=== PATIENT | male | born 1955 | race Caucasian/White ===

== ENCOUNTER 2016-12-28 09:33 | Emergency (ER) | payer BC ==
[2016-12-28] MEDS ORDERED: TETRACAINE HCL 0.5% OPH SOLN 2 ML OD ONE (10:12)
[2016-12-28] MEDS ORDERED: HYDROCODONE/ACETAMINOPHEN 5-325 MG TABLET PO ONE (10:29)
--- NOTE | 2016-12-28 10:30 | ER Document Report ---
ED Eye Complaint - General Mode of Arrival: Ambulatory Information source: Patient TRAVEL OUTSIDE OF THE [place] IN LAST 30 DAYS: No - HPI Patient complains to provider of: Left Eye pain and bruising Onset: This morning Associated symptoms: Other - see above - General Chief Complaint: Eye Injury Stated Complaint: LEFT EYE INJURY Notes: 61 year old male with history of aspirin use presents to the ED complaining of left eye pain and bruising that started this morning when his dog jumped up and hit heads with the patient. Patient states that he was hit above the left eye and denies being scratched or bitten. Patient states that the immediate area around his eye is throbbing. Patient's primary care provider is Dr. Aguilar. ( RICARDO AGUILAR) - Related Data Allergies/Adverse Reactions: No Known Allergies Allergy (Verified 12/28/16 09:47) Past Medical History - General Information source: Patient - Social History Smoking Status: Never Smoker Chew tobacco use (# tins/day): No Frequency of alcohol use: None Drug Abuse: None Family History: Reviewed & Not Pertinent Patient has suicidal ideation: No Patient has homicidal ideation: No - Past Medical History Cardiac Medical History: Reports: Hx Hypercholesterolemia, Hx Hypertension Endocrine Medical History: Reports: Hx Diabetes Mellitus Type 2, Hx Hypothyroidism Musculoskeltal Medical History: Reports Hx Arthritis Traumatic Medical History: Reports: Hx Fractures - fx right femur 1972 Past Surgical History: Reports: Hx Appendectomy - Immunizations Hx Diphtheria, Pertussis, Tetanus Vaccination: Yes Review of Systems - Review of Systems Constitutional: No symptoms reported EENT: See HPI, Eye pain - left eye, Other - left eye bruising Cardiovascular: No symptoms reported Respiratory: No symptoms reported Gastrointestinal: No symptoms reported Genitourinary: No symptoms reported Male Genitourinary: No symptoms reported Musculoskeletal: No symptoms reported Skin: No symptoms reported Hematologic/Lymphatic: No symptoms reported Neurological/Psychological: No symptoms reported -: Yes All other systems reviewed and negative Physical Exam - Vital signs Interpretation: Normal - General General appearance: Alert In distress: None - HEENT Head: No: Normocephalic, Atraumatic Eyes: Other - ecchymosis to the left upper eye with no laceration. No: Normal Cornea: Normal - no foreign body or abrasion secondary to the stain Extraocular movements intact: Yes Eyelashes: Normal Pupils: PERRL - Respiratory Respiratory status: No respiratory distress Breath sounds: Normal - Cardiovascular Rhythm: Regular Heart sounds: Normal auscultation - Abdominal Inspection: Normal - Back Back: Normal, Nontender - Extremities General upper extremity: Normal inspection, Normal ROM General lower extremity: Normal inspection, Normal ROM - Neurological Neuro grossly intact: Yes Cognition: Normal Orientation: AAOx4 [place] Coma Scale Eye Opening: Spontaneous Teri Coma Scale Verbal: Oriented Teri Coma Scale Motor: Obeys Commands [place] Coma Scale Total: 15 Speech: Normal - Psychological Associated symptoms: Normal affect, Normal mood - Skin Skin Temperature: Warm Skin Moisture: Dry Skin Color: Normal - Vital signs Vitals: Temp Pulse Resp BP Pulse Ox 97.9 F 64 16 108/66 95 12/28/16 09:40 12/28/16 09:40 12/28/16 09:40 12/28/16 09:40 12/28/16 09:40 (RICARDO AGUILAR) (EDITH JC) Course - Re-evaluation Re-evalutation: 12/28/16 11:50 I personally performed the services described in the documentation, reviewed and edited the documentation which was dictated to my scribe in my presence, and it accurately records my words and actions. Patient states he bent over and his small dog jumped up and hit him in the face. He has ecchymosis to the left eyelid which is swollen. He has no for head nasal or other face pain. No epistaxis. Complains of pain right over the eyelid where it is bruised and swollen. Stained his eye there is no corneal abrasion or foreign body I struck her muscles intact. Orbital x-ray shows no fracture but possible fracture at the tip of the nose patient didn't have any pain at the tip of the nose noted he complain of pain in that area. I did give him a [place] while he was here he says it didn't make the pain completely goes away I explained to him that he has a bruise and a contusion and it will make the pain completely go away and is going to have pain with this for several days until the swelling and contusion goes down. I'm giving him [place] that he can take at home for that in addition to ice and follow-up with ear nose and throat doctor. He is also follow-up with primary care physician to 3 days return for increasing worsening or new symptoms (EDITH JC) - Vital Signs Vital signs: Temp Pulse Resp BP Pulse Ox 97.9 F 64 16 108/66 95 12/28/16 09:40 12/28/16 09:40 12/28/16 09:40 12/28/16 09:40 12/28/16 09:40 (RICARDO AGUILAR) (EDITH JC) Discharge - Discharge Clinical Impression: left eyelid contusion, concerns for nasal fracture Condition: Stable Disposition: HOME, SELF-CARE Additional Instructions: Contusion Your injury has resulted in a contusion -- a crushing of the deep tissues. No injury to important structures was detected during the physician's exam. Contusions vary in the amount of pain they cause, and in the length of time required for healing. Typically, the area will become bruised, and will remain painful to touch for two or three weeks. However, most patients are back to working and playing within a few days. After the initial period of rest and cold-packs, your symptoms (together with the doctor's recommendations) will determine how rapidly you can get back to full activity. Usually this means "do what feels okay, but don't do things that hurt." If re-examination was recommended, it's important to follow up as instructed. Call the doctor or return any time if pain increases, if swelling becomes severe, if you develop numbness or weakness in an injured extremity, or if any other alarming symptoms occur. nasal bone fracture Radiologist is concerned there may be a broken bone at the tip of your nose. I am also have a follow-up with the ear nose and throat doctor regarding this. Prescriptions: Hydrocodone/Acetaminophen [[place] 5-325 mg Tablet] 1 tab PO QID #15 tablet Referrals: [facility] [Provider Group] - Follow up as needed (Call today for an appointment to be seen in follow-up in 3-5 days return for increasing worsening or new symptoms) RAJESH AGUILAR MD [Primary Care Provider] - Follow up as needed (In 2-3 days) Scribe Documentation - Scribe Written by Marialuisae:: John Wilder, 12/28/2016 11:05 acting as scribe for :: Preston
[2016-12-28 12:09] VITALS: BP 109/67
== END 2016-12-28 12:08 | disposition home or self-care (01) ==
LOC: ER 09:33
DX: S00.12XA Contusion of left eyelid and periocular area, initial encounter (principal); W54.1XXA Struck by dog, initial encounter; H57.12 Ocular pain, left eye; I10 Essential (primary) hypertension; E11.9 Type 2 diabetes mellitus without complications
CPT/HCPCS: 70480; 99283

== ENCOUNTER 2017-01-10 04:38 | Emergency (ER) | payer BC ==
[2017-01-10] MEDS ORDERED: DIAZEPAM 5 MG TABLET PO ONE (06:06)
[2017-01-10] MEDS ORDERED: KETOROLAC TROMETHAMINE 60 MG/2 ML SDV IM ONE (06:06)
--- NOTE | 2017-01-10 07:20 | ER Document Report ---
ED General - General Chief Complaint: Headache Stated Complaint: HEAD PAIN, NECK PAIN Mode of Arrival: Ambulatory Information source: Patient Notes: 61-year-old male presents with complaints of right earache that started for 5 days ago and is now causing him to have a headache. Patient denies any neurological deficits denies any weakness numbness loss about or bladder function. Patient is a diabetic denies any bony tenderness around his ear TRAVEL OUTSIDE OF THE [place] IN LAST 30 DAYS: No - HPI Onset: Last week Onset/Duration: Persistent Quality of pain: Achy Severity: Mild Pain Level: 1 Associated symptoms: Earache, Headache Exacerbated by: Denies Relieved by: Denies Similar symptoms previously: No Recently seen / treated by doctor: No - Related Data Allergies/Adverse Reactions: No Known Allergies Allergy (Verified 12/28/16 09:47) Past Medical History - Social History Smoking Status: Never Smoker Cigarette use (# per day): No Chew tobacco use (# tins/day): No Smoking Education Provided: No Frequency of alcohol use: None Drug Abuse: None Family History: Reviewed & Not Pertinent Patient has suicidal ideation: No Patient has homicidal ideation: No - Past Medical History Cardiac Medical History: Reports: Hx Hypercholesterolemia, Hx Hypertension Denies: Hx Atrial Fibrillation, Hx Congestive Heart Failure, Hx Coronary Artery Disease, Hx Heart Attack, Hx Peripheral Vascular Disease, Hx Heart Murmur Pulmonary Medical History: Denies: Hx Tuberculosis Neurological Medical History: Denies: Hx Seizures Endocrine Medical History: Reports: Hx Diabetes Mellitus Type 2, Hx Hypothyroidism. Denies: Hx Graves' Disease, Hx Hyperthyroidism Renal/ Medical History: Denies: Hx Peritoneal Dialysis Musculoskeltal Medical History: Reports Hx Arthritis Traumatic Medical History: Reports: Hx Fractures - fx right femur 1972 Past Surgical History: Reports: Hx Appendectomy. Denies: Hx Pacemaker - Immunizations Hx Diphtheria, Pertussis, Tetanus Vaccination: Yes Review of Systems - Review of Systems Notes: REVIEW OF SYSTEMS: CONSTITUTIONAL : Denies fever, chills, or sweats. Denies recent illness. EENT: Admits to right earache CARDIOVASCULAR: Denies chest pain. Denies palpitations or racing or irregular heart beat. Denies ankle edema. RESPIRATORY: Denies cough, cold, or chest congestion. Denies shortness of breath, difficulty breathing, or wheezing. GASTROINTESTINAL: Denies abdominal pain or distention. Denies nausea, vomiting , or diarrhea. Denies blood in vomitus, stools, or per rectum. Denies black, tarry stools. Denies constipation. GENITOURINARY: Denies difficulty urinating, painful urination, burning, frequency, blood in urine, or discharge. MUSCULOSKELETAL: Denies back or neck pain or stiffness. Denies joint pain or swelling. SKIN: Denies rash, lesions or sores. HEMATOLOGIC : Denies easy bruising or bleeding. LYMPHATIC: Denies swollen, enlarged glands. NEUROLOGICAL: Admits to headache with no neurological deficits PSYCHIATRIC: Denies anxiety or stress. Denies depression, suicidal ideation, or homicidal ideation. ALL OTHER SYSTEMS REVIEWED AND NEGATIVE. Dictation was performed using [employer] voice recognition software PHYSICAL EXAMINATION: GENERAL: Well-appearing, well-nourished and in no acute distress. HEAD: Atraumatic, normocephalic. No mastoid tenderness EYES: Pupils equal round and reactive to light, extraocular movements intact, sclera anicteric, conjunctiva are normal. ENT: Right TM is pustular NECK: Normal range of motion, supple without lymphadenopathy LUNGS: Breath sounds clear to auscultation bilaterally and equal. No wheezes rales or rhonchi. HEART: Regular rate and rhythm without murmurs ABDOMEN: Soft, nontender, nondistended abdomen. No guarding, no rebound. No masses appreciated. Musculoskeletal: Normal range of motion, no pitting or edema. No cyanosis. NEUROLOGICAL: Cranial nerves grossly intact. Normal speech, normal gait. Normal sensory, motor exams PSYCH: Normal mood, normal affect. SKIN: Warm, Dry, normal turgor, no rashes or lesions noted. Physical Exam - Vital signs Vitals: Temp Pulse BP Pulse Ox 98.1 F 90 127/84 H 94 01/10/17 04:43 01/10/17 04:43 01/10/17 04:43 01/10/17 04:43 Course - Re-evaluation Re-evalutation: 01/10/17 07:19 On my evaluation patient is in no distress, he is given pain control per his complaints however looks extremely well Patient otherwise sent emergently for CT head with and without contrast given that he was complaining of throbbing headache. I very low suspicion for any life-threatening issues however given the symptoms I do believe it is appropriate to evaluate the patient further 01/10/17 07:39 CT head with and without contrast noted no acute abnormality, patient has been instructed to hydrate well given that contrast was given. Patient denied any history of kidney issues and was given contrast without lab work in his permission After performing a Medical Screening Examination, I estimate there is LOW risk for ACUTE GLAUCOMA, TEMPORAL ARTERITIS, MENINGITIS, INCRANIAL HEMORRHAGE, or ISCHEMIC STROKE thus I consider the discharge disposition reasonable. The patient and I have discussed the diagnosis and risks, and we agree with discharging home with close follow-up with the understanding that symptoms and presentations can change. We also discussed returning to the Emergency Department immediately if new or worsening symptoms occur. We have discussed the symptoms which are most concerning (e.g., changing or worsening symptoms, new numbness or weakness, vomiting, fever) that necessitate immediate return. - Vital Signs Vital signs: Temp Pulse Resp BP Pulse Ox 98.1 F 82 20 127/84 H 94 01/10/17 04:44 01/10/17 04:44 01/10/17 04:44 01/10/17 04:44 01/10/17 04:44 Discharge - Discharge Clinical Impression: Otitis media Qualifiers: Otitis media type: unspecified Laterality: unspecified laterality Chronicity: acute Qualified Code(s): H66.90 - Otitis media, unspecified, unspecified ear Headache Qualifiers: Headache type: unspecified Headache chronicity pattern: acute headache Intractability: not intractable Qualified Code(s): R51 - Headache Condition: Stable Disposition: HOME, SELF-CARE Instructions: Headache ([facility]) Prescriptions: Amoxicillin Trihydrate [Amoxil 875 mg Tablet] 1 tab PO BID #20 tablet Hydrocodone/Acetaminophen [[place] 5-325 mg Tablet] 1 tab PO Q6 #10 tablet Referrals: RAJESH AGUILAR MD [Primary Care Provider] - Follow up tomorrow
[2017-01-10 07:57] VITALS: BP 108/77
== END 2017-01-10 07:53 | disposition home or self-care (01) ==
LOC: ER 04:38
DX: R51 Headache (principal); H66.90 Otitis media, unspecified, unspecified ear; H92.01 Otalgia, right ear; I10 Essential (primary) hypertension; E11.9 Type 2 diabetes mellitus without complications
CPT/HCPCS: 99284; 96372; 70450; 70460; J1885

== ENCOUNTER → 2017-02-11 | Outpatient (CLI) | payer BC | LOC: OD 10:37 | PROVIDERS: ATTEND Physician Assistant | DX: M25.552 Pain in left hip (principal); M25.562 Pain in left knee ==

== ENCOUNTER 2017-05-06 19:28 | Emergency (ER) | payer BC ==
[2017-05-06] MEDS ORDERED: OXYCODONE-ACETAMINOPHEN 5-325 MG TABLET PO ONE (21:08)
--- NOTE | 2017-05-06 21:12 | ER Document Report ---
HPI - HPI Patient complains to provider of: Pain to left leg Onset: Last week Onset/Duration: Persistent Quality of pain: Achy Pain Level: 5 Context: Pt complains of pain to his left leg behind the knee. Patient denies any injury. Patient denies any recent travel or immobilization. Patient complains of increased pain with ambulation. Associated Symptoms: Other - left leg pain Exacerbated by: Movement, Walking Relieved by: Denies Similar symptoms previously: No Recently seen / treated by doctor: No - ROS ROS below otherwise negative: Yes Systems Reviewed and Negative: Yes All other systems reviewed and negative - CONSTITUTIONAL Constitutional: DENIES: Fever, Chills - NEURO Neurology: DENIES: Weakness - REPRODUCTIVE Reproductive: DENIES: : - MUSCULOSKELETAL Musculoskeletal: REPORTS: Extremity pain - left leg - DERM Skin Color: Normal Skin Problems: None Past Medical History - General Information source: Patient - Social History Smoking Status: Never Smoker Frequency of alcohol use: None Drug Abuse: None 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 Denies: Hx Graves' Disease, Hx Hyperthyroidism Renal/ Medical History: Denies: Hx Peritoneal Dialysis Musculoskeltal Medical History: Reports Hx Arthritis Traumatic Medical History: Reports: Hx Fractures - fx right femur 1972 Past Surgical History: Reports: Hx Appendectomy. Denies: Hx Pacemaker - Immunizations Hx Diphtheria, Pertussis, Tetanus Vaccination: Yes Vertical Provider Document - CONSTITUTIONAL Agree With Documented VS: Yes Exam Limitations: No Limitations General Appearance: WD/WN, No Apparent Distress - INFECTION CONTROL TRAVEL OUTSIDE OF THE [place] IN LAST 30 DAYS: No - HEENT HEENT: Atraumatic, Normocephalic - NECK Neck: Normal Inspection, Supple - RESPIRATORY Respiratory: Breath Sounds Normal, No Respiratory Distress, Chest Non-Tender O2 Sat by Pulse Oximetry: 95 - CARDIOVASCULAR Cardiovascular: Regular Rate, Regular Rhythm, No Murmur Pulses: Normal: Posterior tibial, Dorsalis pedis - BACK Back: Normal Inspection Notes: no tenderness - MUSCULOSKELETAL/EXTREMETIES Musculoskeletal/Extremeties: Tender - left popliteal pain, No Edema. negative: Eccymosis - NEURO Level of Consciousness: Awake, Alert, Appropriate Motor/Sensory: No Motor Deficit, No Sensory Deficit - DERM Integumentary: Warm, Dry, No Rash Course - Vital Signs Vital signs: Temp Pulse Resp BP Pulse Ox 97.7 F 74 18 109/50 L 95 05/06/17 20:00 05/06/17 20:00 05/06/17 20:00 05/06/17 20:00 05/06/17 20:00 - Diagnostic Test Radiology reviewed: Reports reviewed Discharge - Discharge Clinical Impression: Popliteal pain, Muscle strain Condition: Stable Disposition: HOME, SELF-CARE Instructions: Sprained Knee ([facility]), Use of Crutches ([facility]), Muscle Strain ([facility]), Muscle Relaxers ([facility]) Additional Instructions: Return immediately for any new or worsening symptoms Followup with your primary care provider, call tomorrow to make a followup appointment Follow-up with orthopedic doctor for any continued pain or problems Weightbearing as tolerated Prescriptions: Cyclobenzaprine HCl [Flexeril 10 Mg Tablet] 10 mg PO TID #15 tablet Referrals: RAJESH AGUILAR MD [Primary Care Provider] - Follow up as needed [facility] [Provider Group] - Follow up in 3-5 days
--- NOTE | 2017-05-06 22:19 | RADIOLOGY REPORT (SQ) ---
EXAM DESCRIPTION: KNEE LEFT 4 VIEW COMPLETED DATE/TIME: 05/06/2017 9:48 pm REASON FOR STUDY: left popliteal pain COMPARISON: None. NUMBER OF VIEWS: Four views. TECHNIQUE: AP, lateral, and both oblique radiographic images acquired of the left knee. LIMITATIONS: None. FINDINGS: MINERALIZATION: Normal. BONES: No acute fracture or dislocation. No worrisome bone lesions. JOINT: No effusion. SOFT TISSUES: No soft tissue swelling. No radio-opaque foreign body. OTHER: No other significant finding. IMPRESSION: NO RADIOGRAPHIC EVIDENCE OF ACUTE INJURY. TECHNICAL DOCUMENTATION: JOB ID: [id number] [employer]- All Rights Reserved
--- NOTE | 2017-05-06 22:40 | RADIOLOGY REPORT (SQ) ---
EXAM DESCRIPTION: VENOUS UNILATERAL LOWER COMPLETED DATE/TIME: 05/06/2017 10:30 pm REASON FOR STUDY: left popliteal pain COMPARISON: None. TECHNIQUE: Dynamic and static hitchcock scale and color images acquired of the left leg venous system. Se lected spectral images acquired with additional compression and augmentation maneuvers. The contralat eral common femoral vein and saphenofemoral junction were also imaged. Images stored on PACS. LIMITATIONS: None. FINDINGS: COMMON FEMORAL: Normal phasicity, compression and augmentation. No visualized echogenic ma terial on hitchcock scale. No defects on color images. FEMORAL: Normal compression and augmentation. No visualized echogenic material on hitchcock scale. No defe cts on color images. POPLITEAL: Normal compression, augmentation. No visualized echogenic material on hitchcock scale. No defec ts on color images. CALF VESSELS: Normal compression, augmentation. No visualized echogenic material on hitchcock scale. No de fects on color images. GSV and SSV: Normal compression, augmentation. No visualized echogenic material on hitchcock scale. No def ects on color images. ANY DEEP VENOUS INSUFFICIENCY: Not evaluated. ANY EVIDENCE OF POPLITEAL CYST: No. OTHER: No other significant finding. CONTRALATERAL COMMON FEMORAL VEIN AND SAPHENOFEMORAL JUNCTION: Normal phasicity, compression and augmentation. No visualized echogenic material on hitchcock scale. No de fects on color images. IMPRESSION: NO EVIDENCE OF DVT OR SVT IN THE LEFT LEG. TECHNICAL DOCUMENTATION: JOB ID: [id number] [employer]- All Rights Reserved
[2017-05-06] MEDS ORDERED: HYDROCODONE/ACETAMINOPHEN 5-325 MG 6 TAB/DSPK PO PRN (23:29)
[2017-05-07 00:08] VITALS: BP 112/62
== END 2017-05-06 23:50 | disposition home or self-care (01) ==
LOC: ER 19:28
DX: S86.112A Strain of other muscle(s) and tendon(s) of posterior muscle group at lower leg level, left leg, initial encounter (principal); M25.562 Pain in left knee; M79.605 Pain in left leg; X58.XXXA Exposure to other specified factors, initial encounter
CPT/HCPCS: 93971; 99284

== ENCOUNTER 2017-07-09 17:42 | Emergency (ER) | payer BC ==
[2017-07-09] MEDS ORDERED: OXYCODONE-ACETAMINOPHEN 5-325 MG TABLET PO ONE (18:03)
[2017-07-09 18:27] LABS: APPEARANCE,URINE CLEAR; BILIRUBIN,URINE NEGATIVE (NEGATIVE); GLUCOSE, URINE >=500 mg/dL (NEGATIVE); KETONES,URINE NEGATIVE (NEGATIVE); LEUKOCYTE ESTERASE,URINE NEGATIVE (NEGATIVE); NITRITE,URINE NEGATIVE (NEGATIVE); PROTEIN,URINE NEGATIVE (NEGATIVE); URINE SPECIFIC GRAVITY 1.021; UROBILINOGEN,URINE NEGATIVE mg/dL (<2.0)
[2017-07-09] MEDS ORDERED: KETOROLAC TROMETHAMINE 60 MG/2 ML SDV IM ONE (18:41)
--- NOTE | 2017-07-09 18:48 | ER Document Report ---
HPI - HPI Patient complains to provider of: left sided back pain radiating down leg Onset: Other Onset/Duration: Sudden Quality of pain: Throbbing Severity: Severe Pain Level: 5 Context: Patient states he initial her back 3 weeks ago removing a window air conditioning unit. States he felt like he pulled a muscle in his left buttock which got better. morning with left-sided low back pain which is now radiating down the left leg. Denies Loss of control of bowels or bladder, but states he has had some burning with urination for about 1 week. Associated Symptoms: None Exacerbated by: Movement, Walking Relieved by: Denies Similar symptoms previously: Yes Recently seen / treated by doctor: No - ROS ROS below otherwise negative: Yes Systems Reviewed and Negative: Yes All other systems reviewed and negative - CONSTITUTIONAL Constitutional: DENIES: Fever - EENT EENT: DENIES: Congestion - NEURO Neurology: DENIES: Headache - CARDIOVASCULAR Cardiovascular: DENIES: Chest pain - RESPIRATORY Respiratory: DENIES: Trouble Breathing - GASTROINTESTINAL Gastrointestinal: DENIES: Abdominal Pain - URINARY Urinary: REPORTS: Dysuria. DENIES: Urgency, Frequency - REPRODUCTIVE Reproductive: DENIES: : - MUSCULOSKELETAL Musculoskeletal: REPORTS: Back Pain - DERM Skin Color: Normal Past Medical History - General Information source: Patient - Social History Smoking Status: Former Smoker Frequency of alcohol use: None Drug Abuse: None Lives with: Spouse/Significant other Family History: Reviewed & Not Pertinent - Past Medical History Cardiac Medical History: Reports: Hx Atrial Fibrillation, Hx Hypercholesterolemia, Hx Hypertension Endocrine Medical History: Reports: Hx Diabetes Mellitus Type 2, Hx Hypothyroidism Musculoskeltal Medical History: Reports Hx Arthritis Traumatic Medical History: Reports: Hx Fractures - fx right femur 1972 Past Surgical History: Reports: Hx Appendectomy - Immunizations Hx Diphtheria, Pertussis, Tetanus Vaccination: Yes Vertical Provider Document - CONSTITUTIONAL Agree With Documented VS: Yes Exam Limitations: No Limitations General Appearance: WD/WN, Mild Distress - INFECTION CONTROL TRAVEL OUTSIDE OF THE [place] IN LAST 30 DAYS: No - HEENT HEENT: Atraumatic, Normocephalic - RESPIRATORY Respiratory: Breath Sounds Normal, No Respiratory Distress O2 Sat by Pulse Oximetry: 96 - CARDIOVASCULAR Cardiovascular: Regular Rate, Regular Rhythm - GI/ABDOMEN Gastrointestinal: Abdomen Soft, Abdomen Non-Tender, Normal Bowel Sounds - BACK Back: negative: CVA Tenderness-Right, CVA Tenderness-Left Notes: Tender left lower back over left buttock. Pain is reproduced by pressing over sciatic nerve left buttock, and with left leg raise. Minimal discomfort voiced with right leg raise. No saddle anesthesia - MUSCULOSKELETAL/EXTREMETIES Musculoskeletal/Extremeties: MAEW - NEURO Level of Consciousness: Awake, Alert, Appropriate - DERM Integumentary: Warm, Dry Course - Re-evaluation Re-evalutation: 07/09/17 18:48 Patient asked about sugar intake as sugar was reported in his urine. Accu-Chek was 192. Patient states that he ate cookies and cow tales tells prior to arrival to the ER. Patient states he also does not check his sugar frequently like he has been instructed. - Vital Signs Vital signs: Temp Pulse Resp BP Pulse Ox 97.7 F 73 18 114/66 96 07/09/17 17:46 07/09/17 17:46 07/09/17 17:46 07/09/17 17:46 07/09/17 17:46 - Laboratory Laboratory results interpreted by me: 07/09/17 18:10 Urine Glucose (UA) >=500 H Discharge - Discharge Clinical Impression: Glucosuria Left-sided low back pain with sciatica Qualifiers: Chronicity: acute Sciatica laterality: sciatica of left side Qualified Code(s) : M54.42 - Lumbago with sciatica, left side Condition: Good Disposition: HOME, SELF-CARE Instructions: Ice Packs ([facility]), Oral Narcotic Medication ([facility]), Warm Packs ([facility]) , Low Back Pain ([facility]), Pain Medication Injection ([facility]) Additional Instructions: Sciatica Your symptoms suggest "sciatica." The pain of sciatica typically radiates down the leg. Numbness in the foot or calf may also occur. Sciatica is caused by irritation of the sciatic nerve or its branches. The irritation can be due to a herniated disk in the spine, swelling and inflammation in the muscles surrounding the sciatic nerve, or direct injury of the nerve itself. Most cases of sciatica will resolve with medical treatment. Bed rest is usually recommended initially. Surgery is only necessary when the condition will not improve with rest and antiinflammatory medication. Muscle relaxers are often given if muscle soreness is present. A CAT scan of the back may be performed if a herniated disk is suspected. Re-examination is necessary if you develop increasing numbness, localized weakness in the foot or ankle, or if the pain does not respond to rest. Meds as prescribed Ice or heat packs to back Watch your sugar intake more closely. Check blood sugars as instructed by your primary care doctor Urine culture pending, will be notified if antibiotics are needed. Follow-up with your doctor next week for recheck Return as needed Prescriptions: Cyclobenzaprine HCl [Flexeril 5 mg Tablet] 5 mg PO TID #15 tablet Oxycodone HCl/Acetaminophen [Percocet 5-325 mg Tablet] 1 - 2 tab PO ASDIR PRN # 15 tablet PRN Reason:
[2017-07-09 18:58] VITALS: BP 98/61
== END 2017-07-09 18:59 | disposition home or self-care (01) ==
LOC: ER 17:42
DX: E72.51 Non-ketotic hyperglycinemia (principal); M54.42 Lumbago with sciatica, left side; I48.91 Unspecified atrial fibrillation; E78.00 Pure hypercholesterolemia, unspecified; I10 Essential (primary) hypertension; E11.9 Type 2 diabetes mellitus without complications; E03.9 Hypothyroidism, unspecified
CPT/HCPCS: 99283; 96372; 87086; 82962; 81001; J1885

== ENCOUNTER → 2017-07-18 | Outpatient (CLI) | payer BC ==
--- NOTE | 2017-07-18 16:38 | RADIOLOGY REPORT (SQ) ---
EXAM DESCRIPTION: LUMBAR SPINE COMPLETE COMPLETED DATE/TIME: 07/18/2017 2:54 pm REASON FOR STUDY: LUMBAGO WITH SCIATICA, RIGHT SIDE M54.41 LUMBAGO WITH SCIATICA, RIGHT SIDE COMPARISON: None. NUMBER OF VIEWS: Five views including obliques. TECHNIQUE: AP, lateral, oblique, and sacral radiographic images acquired of the lumbar spine. LIMITATIONS: None. FINDINGS: MINERALIZATION: Normal. SEGMENTATION: Normal. No transitional anatomy. ALIGNMENT: Normal. VERTEBRAE: Maintained height. No fracture or worrisome bone lesion. DISCS: Disc space loss of height at L2-3 and L5-S1 POSTERIOR ELEMENTS: Mild bilateral facet arthropathy at L5-S1. HARDWARE: None in the spine. PARASPINAL SOFT TISSUES: Normal. PELVIS: Intact as visualized. No fractures or worrisome bone lesions. SI joints intact. OTHER: No other significant finding. IMPRESSION: Degenerative disc changes at L2-3 and L5-S1. Mild bilateral facet arthropathy at L5-S1 TECHNICAL DOCUMENTATION: JOB ID: [id number] [employer]- All Rights Reserved
--- NOTE | 2017-07-18 16:40 | RADIOLOGY REPORT (SQ) ---
EXAM DESCRIPTION: KUB COMPLETED DATE/TIME: 07/18/2017 2:54 pm REASON FOR STUDY: LUMBAGO WITH SCIATICA, RIGHT SIDE M54.41 LUMBAGO WITH SCIATICA, RIGHT SIDE COMPARISON: Lumbar spine films same date CT abdomen and pelvis 12/07/2014 NUMBER OF VIEWS: One view. TECHNIQUE: Supine radiographic image of the abdomen acquired. LIMITATIONS: None. FINDINGS: BOWEL GAS PATTERN: Normal bowel gas pattern. No dilated loops. CALCIFICATIONS: No suspicious calcifications. SOFT TISSUES: No gross mass or suggestion of organomegaly. HARDWARE: None in the abdomen. BONES: No acute fracture. Mild disc space loss of height at L2-3 and L5-S1. OTHER: No other significant finding. IMPRESSION: Grossly nonobstructive bowel gas pattern. No ectopic calcifications worrisome for ureteral calculi TECHNICAL DOCUMENTATION: JOB ID: [id number] [employer]- All Rights Reserved
== END ==
LOC: OD 14:41
PROVIDERS: ATTEND Family Medicine
DX: M54.41 Lumbago with sciatica, right side (principal)
CPT/HCPCS: 72110; 74000

== ENCOUNTER 2018-01-22 16:38 | Emergency (ER) | payer BC ==
--- NOTE | 2018-01-22 18:30 | ER Document Report ---
ED Medical Screen (RME) - General Chief Complaint: Chest Pain Stated Complaint: CHEST PAIN Time Seen by Provider: 01/22/18 18:15 Notes: Patient presents due to chest tightness and finding problems breathing that started approximately 345 today while walking. States he has had these symptoms before in the past and had a stress test approximately a year ago. He is followed by his practicing urologist Dr. Yeh out of [place]. He denies any history of heart attacks in the past. Denies any recent cough congestion fevers or illnesses. He states he still continues to have chest tightness and problems breathing in the emergency department. TRAVEL OUTSIDE OF THE [place] IN LAST 30 DAYS: No - Related Data Allergies/Adverse Reactions: No Known Allergies Allergy (Verified 01/22/18 16:39) Past Medical History - Social History Chew tobacco use (# tins/day): No Frequency of alcohol use: None Drug Abuse: None - Past Medical History Cardiac Medical History: Reports: Hx Atrial Fibrillation, Hx Hypercholesterolemia, Hx Hypertension Endocrine Medical History: Reports: Hx Diabetes Mellitus Type 2, Hx Hypothyroidism Renal/ Medical History: Denies: Hx Peritoneal Dialysis Musculoskeltal Medical History: Reports Hx Arthritis Traumatic Medical History: Reports: Hx Fractures - fx right femur 1972 Past Surgical History: Reports: Hx Appendectomy - Immunizations Hx Diphtheria, Pertussis, Tetanus Vaccination: Yes Review of Systems - Review of Systems Cardiovascular: Other - Chest tightness and shortness of breath Physical Exam - Vital signs Vitals: Temp Pulse BP Pulse Ox 98.1 F 85 110/75 94 01/22/18 17:00 01/22/18 17:00 01/22/18 17:00 01/22/18 17:00 - Cardiovascular Rhythm: Regular Heart sounds: Normal auscultation Murmur: Yes Systolic murmur grade 1-6: 2 Course - Vital Signs Vital signs: Temp Pulse Resp BP Pulse Ox 98.1 F 85 110/75 94 01/22/18 17:00 01/22/18 17:00 01/22/18 17:00 01/22/18 17:00
[2018-01-22 18:55] LABS: ABSOLUTE EOSINOPHILS # (AUTO) 0.4 10^3/uL (0.0-0.6); ABSOLUTE LYMPHOCYTES (AUTO) 1.4 10^3/uL (0.5-4.7); ABSOLUTE MONOCYTES (AUTO) 0.6 10^3/uL (0.1-1.4); ABSOLUTE NEUT (AUTO) 4.4 10^3/uL (1.7-8.2); BASOPHILS % (AUTO) 0.7 % (0-2); EOSINOPHILS % (AUTO) 5.2 % (0-6); HEMATOCRIT 48.3 % (37.9-51.0); HEMOGLOBIN 16.6 g/dL (13.5-17.0); LYMPHOCYTES % (AUTO) 20.1 % (13-45); MEAN CORPUSCULAR HGB CONC 34.4 g/dL (32.0-36.0); MEAN CORPUSCULAR VOLUME 90 fl (80-97); MONOCYTES % (AUTO) 8.8 % (3-13); PLATELET COUNT 206 10^3/uL (150-450); RED BLOOD COUNT 5.36 10^6/uL (4.35-5.55); RED CELL DISTRIBUTION WIDTH 13.6 % (11.5-14.0); SEGMENTED NEUTROPHILS % (AUTO) 65.2 % (42-78); TOTAL CELLS COUNTED % (AUTO) 100 %; WHITE BLOOD COUNT 6.8 10^3/uL (4.0-10.5)
[2018-01-22 19:17] LABS: ALANINE AMINOTRANSFERASE 69 U/L (21-72); ALBUMIN 4.6 g/dL (3.5-5.0); ALKALINE PHOSPHATASE 86 U/L (38-126); ANION GAP 13 (5-19); ASPARTATE AMINO TRANSFERASE 42 U/L (17-59); BILIRUBIN,DIRECT 0.2 mg/dL (0.0-0.4); BILIRUBIN,TOTAL 0.6 mg/dL (0.2-1.3); BLOOD UREA NITROGEN 15 mg/dL (7-20); CARBON DIOXIDE 24 mmol/L (22-30); CHLORIDE 101 mmol/L (98-107); GLUCOSE 194 mg/dL (75-110); POTASSIUM 4.4 mmol/L (3.6-5.0); TOTAL PROTEIN 7.1 g/dL (6.3-8.2)
[2018-01-22 19:29] LABS: NT PRO BNP 19 pg/mL (5-900)
[2018-01-22 19:30] LABS: TROPONIN I < 0.012 ng/mL
--- NOTE | 2018-01-22 19:35 | RADIOLOGY REPORT (SQ) ---
EXAM DESCRIPTION: CHEST SINGLE VIEW COMPLETED DATE/TIME: 01/22/2018 7:22 pm REASON FOR STUDY: chest pain COMPARISON: 09/28/2016 EXAM PARAMETERS: NUMBER OF VIEWS: One view. TECHNIQUE: Single frontal radiographic view of the chest acquired. RADIATION DOSE: NA LIMITATIONS: None. FINDINGS: LUNGS AND PLEURA: No acute opacities, masses or pneumothorax. No pleural effusion. MEDIASTINUM AND HILAR STRUCTURES: Stable. HEART AND VASCULAR STRUCTURES: Stable. BONES: No acute findings. HARDWARE: None in the chest. OTHER: No other significant finding. IMPRESSION: NO ACUTE RADIOGRAPHIC FINDING IN THE CHEST. TECHNICAL DOCUMENTATION: JOB ID: [id number] [place]-72 2010 [employer]- All Rights Reserved Reading location - IP/workstation name: [email or web address]
--- NOTE | 2018-01-22 20:15 | ER Document Report ---
ED General - General Chief Complaint: Chest Pain Stated Complaint: CHEST PAIN Time Seen by Provider: 01/22/18 18:15 Notes: Patient is a 63-year-old male with a past medical history of hypertension who presents with chest discomfort and shortness of breath that has been intermittent for the past several days but worse since 2 to 3:00 this afternoon. Patient describes as a pressure-like sensation over the central aspect of his chest that does not radiate. It is not associated with nausea, vomiting, diaphoresis or syncope. 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 He has no known cardiac history and has never had an IA. He denies any pleuritic pain, history of DVT or pulmonary embolus, or use of estrogen. Nothing seems to improve or worsen his symptoms. He denies any pain or pressure at the time of my evaluation. TRAVEL OUTSIDE OF THE [place] IN LAST 30 DAYS: No - Related Data Allergies/Adverse Reactions: No Known Allergies Allergy (Verified 01/22/18 16:39) Past Medical History - General Information source: Patient - Social History Smoking Status: Former Smoker Chew tobacco use (# tins/day): No Frequency of alcohol use: None Drug Abuse: None Lives with: Spouse/Significant other Family History: Reviewed & Not Pertinent Patient has suicidal ideation: No Patient has homicidal ideation: No - Past Medical History Cardiac Medical History: Reports: Hx Atrial Fibrillation, Hx Hypercholesterolemia, Hx Hypertension Endocrine Medical History: Reports: Hx Diabetes Mellitus Type 2, Hx Hypothyroidism Renal/ Medical History: Denies: Hx Peritoneal Dialysis Musculoskeltal Medical History: Reports Hx Arthritis Traumatic Medical History: Reports: Hx Fractures - fx right femur 1972 Past Surgical History: Reports: Hx Appendectomy - Immunizations Hx Diphtheria, Pertussis, Tetanus Vaccination: Yes Review of Systems - Review of Systems Notes: Constitutional: Negative for fever. HENT: Negative for sore throat. Eyes: Negative for visual changes. Cardiovascular: Positive for chest pain. Respiratory: Positive for shortness of breath. Gastrointestinal: Negative for abdominal pain, vomiting or diarrhea. Genitourinary: Negative for dysuria. Musculoskeletal: Negative for back pain. Skin: Negative for rash. Neurological: Negative for headaches, weakness or numbness. 10 point ROS negative except as marked above and in HPI. Physical Exam - Vital signs Vitals: Temp Pulse BP Pulse Ox 98.1 F 85 110/75 94 01/22/18 17:00 01/22/18 17:00 01/22/18 17:00 01/22/18 17:00 Interpretation: Normal Notes: PHYSICAL EXAMINATION: GENERAL: Well-appearing, well-nourished and in no acute distress. HEAD: Atraumatic, normocephalic. EYES: Pupils equal round and reactive to light, extraocular movements intact, sclera anicteric, conjunctiva are normal. ENT: nares patent, oropharynx clear without exudates. Moist mucous membranes. NECK: Normal range of motion, supple without lymphadenopathy LUNGS: Breath sounds clear to auscultation bilaterally and equal. No wheezes rales or rhonchi. HEART: Regular rate and rhythm, 3 out of 6 systolic ejection murmur ABDOMEN: Soft, nontender, normoactive bowel sounds. No guarding, no rebound. No masses appreciated. EXTREMITIES: Normal range of motion, no pitting or edema. No cyanosis. NEUROLOGICAL: No focal neurological deficits. Moves all extremities spontaneously and on command. PSYCH: Normal mood, normal affect. SKIN: Warm, Dry, normal turgor, no rashes or lesions noted. Course - Re-evaluation Re-evalutation: 01/22/18 20:11 Presentation of chest pain in an otherwise well appearing patient. Low clinical suspicion for ACS given clinical history, exam, EKG without ST elevations or depressions, and negative initial troponin. HEART score less than or equal to 3. PE also seems unlikely given clinical history, absence of tachycardia or dyspnea. Patient is PERC criteria negative. CXR without evidence of pneumothorax or pneumonia. No widened mediastinum. Aortic dissection also seems unlikely given history, symmetric pulses, CXR, and vitals. Will obtain repeat of this remains normal plan for discharge home. HEART Score: History:0 EC Age:1 Risk Factors:1 Troponin:0 Total: 2 01/22/18 22:23 Delta troponin remains normal. Overall assessment: Chest pain in a patient without evidence of cardiac or other serious etiology on workup today. I discussed with patient that, based on their age, risk factors and emergency department testing today, the likelihood that their symptoms are related to a heart attack is very low (estimated risk of heart attack or over the next 30 days of less than 1%). The patient demonstrates decision making capacity and has verbalized an understanding of these risks to me. Based on this, the patient has chosen to follow-up as an outpatient. Usual chest pain return precautions reviewed. The patient states understanding and agreement with this plan. - Vital Signs Vital signs: Temp Pulse Resp BP Pulse Ox 98.1 F 85 15 98/69 L 93 01/22/18 22:40 01/22/18 17:00 01/22/18 22:40 01/22/18 22:40 01/22/18 22:40 - Laboratory Result Diagrams: 01/22/18 18:38 01/22/18 18:38 Laboratory results interpreted by me: 01/22/18 18:38 Glucose 194 H - Diagnostic Test Radiology reviewed: Image reviewed, Reports reviewed Radiology results interpreted by me: 01/22/18 20:12 Chest x-ray: No acute infiltrate or pneumothorax - EKG Interpretation by Me Additional EKG results interpreted by me: 01/22/18 20:12 Normal sinus rhythm. Rate 70. No ST elevations or depressions. QTC is 429. Discharge - Discharge Clinical Impression: Chest pressure, Shortness of breath Condition: Good Disposition: HOME, SELF-CARE Additional Instructions: You were seen today for chest pain. The exact cause of your pain is unclear. However, based on your cardiac enzyme testing, chest x-ray, and EKG it does not appear that it is from an immediately life-threatening cause at this time. Although your testing here is normal is critical that you follow-up with your primary care physician for continued evaluation of this chest pain and possible stress testing. I recommended you see your physician within the next 24-48 hours to be evaluated for consideration of a stress test. Please return to emergency department immediately if you have worsening of your chest pain, shortness of breath, vomiting, become unable to exert yourself due to pain or difficulty breathing, you pass out, or have any pain that radiates into your arms, jaw, or back. Please also return if you have any additional symptoms that are concerning to you. Referrals: RAJESH AGUILAR MD [Primary Care Provider] - Follow up in 3-5 days
--- NOTE | 2018-01-22 21:24 | EKG REPORT ---
SEVERITY:- NORMAL ECG - SINUS RHYTHM : Confirmed by: Matthew Costa MD 22-Jan-2018 21:24:01
[2018-01-22 22:49] VITALS: BP 98/69
== END 2018-01-22 22:50 | disposition home or self-care (01) ==
LOC: ER 16:38
DX: R07.9 Chest pain, unspecified (principal); R06.02 Shortness of breath; I48.91 Unspecified atrial fibrillation; E78.00 Pure hypercholesterolemia, unspecified; I10 Essential (primary) hypertension; E11.9 Type 2 diabetes mellitus without complications; E03.9 Hypothyroidism, unspecified; Z87.891 Personal history of nicotine dependence
CPT/HCPCS: 36415; 71045; 80053; 83735; 83880; 84484; 85025; 93005; 93010; 99285

== ENCOUNTER → 2018-03-31 | Outpatient (CLI) | payer BC ==
--- NOTE | 2018-03-31 13:08 | RADIOLOGY REPORT (SQ) ---
EXAM DESCRIPTION: C SP 4 OR 5 VIEWS COMPLETED DATE/TIME: 03/31/2018 12:52 pm REASON FOR STUDY: CERVICALGIA M54.2 CERVICALGIA COMPARISON: None. NUMBER OF VIEWS: Five views. TECHNIQUE: AP, lateral, obliques and odontoid radiographic images acquired of the cervical spine. LIMITATIONS: None. FINDINGS: MINERALIZATION: Normal. ALIGNMENT: Anatomic. VERTEBRAE: Vertebral bodies of normal height. DISCS: There is narrowing at C5-6 with anterior and posterior osteophytes. FORAMINA: There is encroachment upon the right neural foramen at C5-6 by uncovertebral osteophytes. LATERAL AND POSTERIOR ELEMENTS: Facets, lateral masses and spinous processes without significant find ings. HARDWARE: None in the spine. SOFT TISSUES: No masses or calcifications. Lung apices clear. OTHER: No other significant finding. IMPRESSION: Degenerative disc disease and spondylosis. TECHNICAL DOCUMENTATION: JOB ID: [id number] [employer]- All Rights Reserved Reading location - IP/workstation name: [email or web address]
== END ==
LOC: OD 12:35
PROVIDERS: ATTEND Physician Assistant
DX: M54.2 Cervicalgia (principal); M50.322 Other cervical disc degeneration at C5-C6 level; M47.892 Other spondylosis, cervical region
CPT/HCPCS: 72050

== ENCOUNTER 2018-09-06 17:54 | Emergency (ER) | payer BC ==
[2018-09-06] MEDS ORDERED: NORMAL SALINE 1000 ML 1,000 ML IV ONE ×2 (18:18→21:16)
--- NOTE | 2018-09-06 18:19 | EKG REPORT ---
SEVERITY:- NORMAL ECG - SINUS RHYTHM : Confirmed by: Ruth Graves MD 06-Sep-2018 18:18:43
--- NOTE | 2018-09-06 18:21 | ER Document Report ---
ED Medical Screen (RME) - General Chief Complaint: Chest Pain Stated Complaint: DIZZY, HEAD PRESSURE Time Seen by Provider: 09/06/18 18:11 Mode of Arrival: Wheelchair Information source: Patient TRAVEL OUTSIDE OF THE [place] IN LAST 30 DAYS: No - HPI Patient complains to provider of: Headache and chest tightness Onset: Other - This is a 63-year-old man with a history of hypertension hyperlipidemia and diabetes that presents for evaluation of shortness of breath as well as headache, he was mowing the grass got overexerted went inside to relax for a moment upon attempting to return to the lawnmower he started having a throbbing headache which felt as if his head was inflating, he then began to have chest tightness and shortness of breath. He noted that he then had to lean against the car and sit on the ground since then he said persistent headache with a throbbing quality. He has had a headache in the past which was attributed to his blood pressure. Nothing is seem to make his headache any better, nothing seems to make it any worse, is not take anything try to help with this. - Related Data Allergies/Adverse Reactions: No Known Allergies Allergy (Verified 09/06/18 18:05) Past Medical History - Social History Chew tobacco use (# tins/day): No Frequency of alcohol use: None Drug Abuse: None - Past Medical History Cardiac Medical History: Reports: Hx Atrial Fibrillation, Hx Hypercholesterolemia, Hx Hypertension Endocrine Medical History: Reports: Hx Diabetes Mellitus Type 2, Hx Hypothyroidism Renal/ Medical History: Denies: Hx Peritoneal Dialysis Musculoskeltal Medical History: Reports Hx Arthritis Traumatic Medical History: Reports: Hx Fractures - fx right femur 1972 Past Surgical History: Reports: Hx Appendectomy - Immunizations Hx Diphtheria, Pertussis, Tetanus Vaccination: Yes Physical Exam - Vital signs Vitals: Temp Pulse Resp BP Pulse Ox 97.3 F 86 18 106/70 96 09/06/18 17:56 09/06/18 17:56 09/06/18 17:56 09/06/18 17:56 09/06/18 17:56 Course - Re-evaluation Re-evalutation: 09/06/18 18:19 This is a 63-year-old male with multiple medical comorbidities who presents for evaluation of a throbbing headache as well as chest tightness. This developed after he had exerted himself while attempting to cut the grass. His neurologic examination in brief is nonfocal. Given his age however and risk factors will obtain CT of the head. We will initiate cardiac workup as well given his chest tightness. I performed a rapid medical screening examination on this patient will defer further disposition determination workup and labs to next provider. - Vital Signs Vital signs: Temp Pulse Resp BP Pulse Ox 97.3 F 86 18 106/70 96 09/06/18 17:56 09/06/18 17:56 09/06/18 17:56 09/06/18 17:56 09/06/18 17:56 Doctor's Discharge - Discharge Referrals: SURAJ SHOOK PA [Primary Care Provider] - Follow up as needed
[2018-09-06 18:49] LABS: ABSOLUTE EOSINOPHILS # (AUTO) 0.1 10^3/uL (0.0-0.6); ABSOLUTE LYMPHOCYTES (AUTO) 0.8 10^3/uL (0.5-4.7); ABSOLUTE MONOCYTES (AUTO) 0.7 10^3/uL (0.1-1.4); ABSOLUTE NEUT (AUTO) 7.7 10^3/uL (1.7-8.2); BASOPHILS % (AUTO) 0.4 % (0-2); EOSINOPHILS % (AUTO) 1.3 % (0-6); HEMATOCRIT 47.6 % (37.9-51.0); HEMOGLOBIN 16.4 g/dL (13.5-17.0); LYMPHOCYTES % (AUTO) 8.4 % (13-45); MEAN CORPUSCULAR HEMOGLOBIN 31.2 pg (27.0-33.4); MEAN CORPUSCULAR HGB CONC 34.6 g/dL (32.0-36.0); MEAN CORPUSCULAR VOLUME 90 fl (80-97); PLATELET COUNT 218 10^3/uL (150-450); RED BLOOD COUNT 5.27 10^6/uL (4.35-5.55); RED CELL DISTRIBUTION WIDTH 12.6 % (11.5-14.0); SEGMENTED NEUTROPHILS % (AUTO) 81.9 % (42-78); TOTAL CELLS COUNTED % (AUTO) 100 %; WHITE BLOOD COUNT 9.4 10^3/uL (4.0-10.5)
--- NOTE | 2018-09-06 18:51 | RADIOLOGY REPORT (SQ) ---
EXAM DESCRIPTION: CHEST 2 VIEWS COMPLETED DATE/TIME: 09/06/2018 6:43 pm REASON FOR STUDY: headache, chest pain COMPARISON: None. EXAM PARAMETERS: NUMBER OF VIEWS: two views TECHNIQUE: Digital Frontal and Lateral radiographic views of the chest acquired. RADIATION DOSE: NA LIMITATIONS: none FINDINGS: LUNGS AND PLEURA: Mild interstitial change. Stable ill-defined density project over the r ight lower lung zone. No new infiltrates. No pleural effusions. MEDIASTINUM AND HILAR STRUCTURES: No masses or contour abnormalities. HEART AND VASCULAR STRUCTURES: Heart normal size. No evidence for failure. BONES: No acute findings. HARDWARE: None in the chest. OTHER: No other significant finding. IMPRESSION: Mild chronic pulmonary interstitial disease. No acute findings. TECHNICAL DOCUMENTATION: JOB ID: [id number] [employer] [employer]- All Rights Reserved Reading location - IP/workstation name: [email or web address]
--- NOTE | 2018-09-06 18:52 | RADIOLOGY REPORT (SQ) ---
EXAM DESCRIPTION: CT HEAD WITHOUT COMPLETED DATE/TIME: 09/06/2018 6:40 pm REASON FOR STUDY: headache COMPARISON: 01/10/2017 TECHNIQUE: Axial images acquired through the brain without intravenous contrast. Images reviewed wi th bone, brain and subdural windows. Additional sagittal and coronal reconstructions were generated. Images stored on PACS. All CT scanners at this facility use dose modulation, iterative reconstruction, and/or weight based d osing when appropriate to reduce radiation dose to as low as reasonably achievable (ALARA). [facility]: Dose Right [facility]: CareDose [facility]: Dose Right [facility]: Teradose 4D [facility]: Smart SmashChart RADIATION DOSE: CT Rad equipment meets quality standard of care and radiation dose reduction techniq ues were employed. CTDIvol: 53.2 mGy. DLP: 1017 mGy-cm. mGy. LIMITATIONS: None. FINDINGS: VENTRICLES: Normal size and contour. CEREBRUM: No masses. No hemorrhage. No midline shift. No evidence for acute infarction. Normal gra y/white matter differentiation. No areas of low density in the white matter. CEREBELLUM: No masses. No hemorrhage. No alteration of density. No evidence for acute infarction. EXTRAAXIAL SPACES: No fluid collections. No masses. ORBITS AND GLOBE: No intra- or extraconal masses. Normal contour of globe without masses. CALVARIUM: No fracture. PARANASAL SINUSES: No fluid or mucosal thickening. SOFT TISSUES: No mass or hematoma. OTHER: No other significant finding. IMPRESSION: NORMAL BRAIN CT WITHOUT CONTRAST. EVIDENCE OF ACUTE STROKE: NO. COMMENT: Quality ID # [id number]: Final reports with documentation of one or more dose reduction techniques (e.g., Automated exposure control, adjustment of the mA and/or kV according to patient size, use of iterative reconstruction technique) TECHNICAL DOCUMENTATION: JOB ID: [id number] [employer]- All Rights Reserved Reading location - IP/workstation name: [email or web address]
[2018-09-06 19:02] LABS: ALANINE AMINOTRANSFERASE 73 U/L (21-72); ALBUMIN 4.6 g/dL (3.5-5.0); ALKALINE PHOSPHATASE 88 U/L (38-126); ANION GAP 10 (5-19); ASPARTATE AMINO TRANSFERASE 53 U/L (17-59); BILIRUBIN,DIRECT 0.3 mg/dL (0.0-0.4); BILIRUBIN,TOTAL 0.8 mg/dL (0.2-1.3); BLOOD UREA NITROGEN 15 mg/dL (7-20); CALCIUM 9.8 mg/dL (8.4-10.2); CARBON DIOXIDE 27 mmol/L (22-30); CHLORIDE 98 mmol/L (98-107); CREATINE KINASE 131 U/L (55-170); GLUCOSE 230 mg/dL (75-110); POTASSIUM 4.6 mmol/L (3.6-5.0); SODIUM 134.5 mmol/L (137-145); TOTAL PROTEIN 7.8 g/dL (6.3-8.2)
[2018-09-06 19:14] LABS: CREATINE KINASE MB 2.37 ng/mL (<4.55)
[2018-09-06 19:15] LABS: TROPONIN I < 0.012 ng/mL
[2018-09-06] MEDS ORDERED: PROCHLORPERAZINE EDISYLATE INJ 10 MG/2 ML VIAL IV ONE (20:30)
[2018-09-06] MEDS ORDERED: ONDANSETRON HCL INJ/PF 4 MG/2 ML SDV IV ONE (20:30)
[2018-09-06 22:23] LABS: APPEARANCE,URINE CLEAR; BILIRUBIN,URINE NEGATIVE (NEGATIVE); COLOR,URINE STRAW; GLUCOSE, URINE NEGATIVE (NEGATIVE); KETONES,URINE NEGATIVE (NEGATIVE); LEUKOCYTE ESTERASE,URINE NEGATIVE (NEGATIVE); NITRITE,URINE NEGATIVE (NEGATIVE); PROTEIN,URINE NEGATIVE (NEGATIVE); URINE SPECIFIC GRAVITY 1.005; UROBILINOGEN,URINE NEGATIVE mg/dL (<2.0)
--- NOTE | 2018-09-06 23:10 | ER Document Report ---
ED General - General Chief Complaint: Chest Pain Stated Complaint: DIZZY, HEAD PRESSURE Time Seen by Provider: 09/06/18 18:11 Mode of Arrival: Wheelchair TRAVEL OUTSIDE OF THE [place] IN LAST 30 DAYS: No - HPI Patient complains to provider of: Dizziness head pain Notes: Patient coming in for dizziness hip pain for like he was almost going to pass out patient states earlier today is been mowing the grass patient states he has been hydrating himself with diet Mountain Dew. Patient states after his time of hydration in the house went back outside became lightheaded dizzy and now currently has a headache with a bandlike feeling around his head. Patient states 24 hours prior to the visit here in ER was as stated normal health. Patient is compliant with all his medications. Patient denies any recent travel denies any fevers chills nausea vomiting - Related Data Allergies/Adverse Reactions: No Known Allergies Allergy (Verified 09/06/18 18:05) Past Medical History - General Information source: Patient - Social History Smoking Status: Former Smoker Chew tobacco use (# tins/day): No Frequency of alcohol use: None Drug Abuse: None Family History: Reviewed & Not Pertinent Patient has suicidal ideation: No Patient has homicidal ideation: No - Past Medical History Cardiac Medical History: Reports: Hx Atrial Fibrillation, Hx Hypercholesterolemia, Hx Hypertension Endocrine Medical History: Reports: Hx Diabetes Mellitus Type 2, Hx Hypothyroidism Renal/ Medical History: Denies: Hx Peritoneal Dialysis Musculoskeletal Medical History: Reports Hx Arthritis Traumatic Medical History: Reports: Hx Fractures - fx right femur 1972 Past Surgical History: Reports: Hx Appendectomy - Immunizations Hx Diphtheria, Pertussis, Tetanus Vaccination: Yes Review of Systems - Review of Systems Constitutional: Weakness EENT: No symptoms reported Cardiovascular: No symptoms reported Respiratory: No symptoms reported Gastrointestinal: No symptoms reported Genitourinary: No symptoms reported Male Genitourinary: No symptoms reported Musculoskeletal: No symptoms reported Skin: No symptoms reported Hematologic/Lymphatic: No symptoms reported Neurological/Psychological: No symptoms reported, Other - Dizziness -: Yes All other systems reviewed and negative Physical Exam - Vital signs Vitals: Temp Pulse Resp BP Pulse Ox 97.3 F 86 18 106/70 96 09/06/18 17:56 09/06/18 17:56 09/06/18 17:56 09/06/18 17:56 09/06/18 17:56 Interpretation: Normal - General General appearance: Appears well, Alert - HEENT Head: Normocephalic, Atraumatic Eyes: Normal Pupils: PERRL - Respiratory Respiratory status: No respiratory distress Chest status: Nontender Breath sounds: Normal Chest palpation: Normal - Cardiovascular Rhythm: Regular Heart sounds: No: Normal auscultation - 3/6 systolic murmur Murmur: No - Abdominal Inspection: Normal Distension: No distension Bowel sounds: Normal Tenderness: Nontender Organomegaly: No organomegaly - Back Back: Normal, Nontender - Extremities General upper extremity: Normal inspection, Nontender, Normal color, Normal ROM , Normal temperature General lower extremity: Normal inspection, Nontender, Normal color, Normal ROM , Normal temperature, Normal weight bearing. No: Ubaldo's sign - Neurological Neuro grossly intact: Yes Cognition: Normal Orientation: AAOx4 [place] Coma Scale Eye Opening: Spontaneous Teri Coma Scale Verbal: Oriented [place] Coma Scale Motor: Obeys Commands [place] Coma Scale Total: 15 Speech: Normal Motor strength normal: LUE, RUE, LLE, RLE Sensory: Normal - Psychological Associated symptoms: Normal affect, Normal mood - Skin Skin Temperature: Warm Skin Moisture: Dry Skin Color: Normal Course - Re-evaluation Re-evalutation: 09/07/18 02:30 Laboratory studies not revealing critical pathology. EKG also did not reveal any critical pathology. Patient's orthostatics were positive. Patient was given IV fluids. After IV fluids Compazine Zofran for the patient's headache patient states he is feeling much better. CT of the head was also negative for any acute pathology. Patient was educated about proper hydration patient states understanding patient will be discharged home follow-up primary care physician. The patient presents with headache without signs of VACCINATOR bleed, stroke, infection, or other serious etiology. The patient is neurologically intact. Given the extremely low risk of these diagnoses further testing and evaluation for these possibilities does not appear to be indicated at this time. The patient has been instructed to return if the symptoms worsen or change in any way.. - Vital Signs Vital signs: Temp Pulse Resp BP Pulse Ox 97.5 F 66 18 111/65 95 09/06/18 23:37 09/06/18 23:37 09/06/18 23:37 09/06/18 23:37 09/06/18 23:37 - Laboratory Result Diagrams: 09/06/18 18:30 09/06/18 18:30 Laboratory results interpreted by me: 09/06/18 09/06/18 18:30 18:30 Seg Neutrophils % 81.9 H Lymphocytes % 8.4 L Sodium 134.5 L Glucose 230 H ALT 73 H Discharge - Discharge Clinical Impression: Orthostatic dizziness, Dehydration Headache Qualifiers: Headache type: unspecified Headache chronicity pattern: acute headache Intractability: not intractable Qualified Code(s): R51 - Headache Condition: Good Disposition: HOME, SELF-CARE Instructions: Dehydration ([facility]), Dizziness ([facility]), Orthostatic Hypotension ([facility]) Additional Instructions: Follow-up with your primary care physician. Laboratory studies today and workup shows signs of dehydration which can cause your headache your dizziness and your symptoms of feeling unwell. Whenever you are outside make sure you are hydrating with water or fluids containing electrolytes return to the ER symptoms worsen. He may take the medication as prescribed for any other headaches. Prescriptions: Ondansetron HCl [Zofran 4 mg Tablet] 1 - 2 tab PO Q6 #30 tablet Prochlorperazine Maleate [Compazine] 5 mg PO Q6 #30 tablet Forms: Return to Work Referrals: SURAJ SHOOK PA [NO LOCAL MD] - Follow up as needed
[2018-09-06 23:38] VITALS: BP 111/65
== END 2018-09-06 23:38 | disposition home or self-care (01) ==
LOC: ER 17:54
DX: I95.1 Orthostatic hypotension (principal); R51 Headache; E86.0 Dehydration; R07.9 Chest pain, unspecified; R42 Dizziness and giddiness; I48.91 Unspecified atrial fibrillation; E78.00 Pure hypercholesterolemia, unspecified; I10 Essential (primary) hypertension; E11.9 Type 2 diabetes mellitus without complications; E03.9 Hypothyroidism, unspecified
CPT/HCPCS: 93005; 99285; 96361; 96374; 96375; 36415; 82553; 82550; 85025; 80053; 81001; 84484; 71046; 70450; 93010; J0780; J2405; J7030

== ENCOUNTER 2019-04-25 18:47 | Emergency (ER) | payer BC ==
--- NOTE | 2019-04-25 20:14 | ER Document Report ---
ED Medical Screen (RME) - General Chief Complaint: Chest Pain Stated Complaint: EYE,CHEST PAIN/HEADACHE Time Seen by Provider: 04/25/19 20:04 Mode of Arrival: Ambulatory Information source: Patient Notes: 64-year-old male presented to ED for complaint of chest pain eyes feeling funny, heart palpitation and severe headache. He states he had a heart cath last Tuesday and he the same symptoms after the heart cath. He states they sent him home. He said they told him he has a heart murmur and was going need surgery and he has an appointment in [facility] to schedule a surgery for a valve replacement. He has a history of diabetes cholesterol heart murmur and hypothyroid. Patient is alert oriented respirations regular and unlabored speaking in full sentences. He states he is very concerned about his head because this is a second time he had a severe headache. I have greeted and performed a rapid initial assessment of this patient. A comprehensive ED assessment and evaluation of the patient, analysis of test results and completion of medical decision making process will be conducted by an additional ED providers. Dictation of this chart was performed using voice recognition software; therefore, there may be some unintended grammatical errors. TRAVEL OUTSIDE OF THE [place] IN LAST 30 DAYS: No - Related Data Allergies/Adverse Reactions: No Known Allergies Allergy (Verified 04/25/19 18:49) Past Medical History - Past Medical History Cardiac Medical History: Reports: Hx Atrial Fibrillation, Hx Hypercholesterolemia, Hx Hypertension Endocrine Medical History: Reports: Hx Diabetes Mellitus Type 2, Hx Hypo thyroidism Renal/ Medical History: Denies: Hx Peritoneal Dialysis Musculoskeltal Medical History: Reports Hx Arthritis, Denies Hx Systemic Lupus Erythematosus Traumatic Medical History: Reports: Hx Fractures - fx right femur 1972 Past Surgical History: Reports: Hx Appendectomy - Immunizations Hx Diphtheria, Pertussis, Tetanus Vaccination: Yes Physical Exam - Vital signs Vitals: Temp Pulse Resp BP Pulse Ox 98.1 F 85 16 101/64 93 04/25/19 19:30 04/25/19 19:30 04/25/19 19:30 04/25/19 19:30 04/25/19 19:30 Course - Vital Signs Vital signs: Temp Pulse Resp BP Pulse Ox 98.1 F 85 16 101/64 93 04/25/19 19:30 04/25/19 19:30 04/25/19 19:30 04/25/19 19:30 04/25/19 19:30
[2019-04-25 20:33] LABS: ABSOLUTE BASOPHILS # (AUTO) 0.1 10^3/uL (0.0-0.2); ABSOLUTE EOSINOPHILS # (AUTO) 0.4 10^3/uL (0.0-0.6); ABSOLUTE LYMPHOCYTES (AUTO) 1.3 10^3/uL (0.5-4.7); ABSOLUTE MONOCYTES (AUTO) 0.7 10^3/uL (0.1-1.4); ABSOLUTE NEUT (AUTO) 5.7 10^3/uL (1.7-8.2); BASOPHILS % (AUTO) 0.7 % (0-2); EOSINOPHILS % (AUTO) 5.1 % (0-6); HEMATOCRIT 47.2 % (37.9-51.0); HEMOGLOBIN 16.1 g/dL (13.5-17.0); LYMPHOCYTES % (AUTO) 16.1 % (13-45); MEAN CORPUSCULAR HEMOGLOBIN 30.6 pg (27.0-33.4); MEAN CORPUSCULAR VOLUME 90 fl (80-97); MONOCYTES % (AUTO) 8.7 % (3-13); PLATELET COUNT 220 10^3/uL (150-450); RED BLOOD COUNT 5.24 10^6/uL (4.35-5.55); RED CELL DISTRIBUTION WIDTH 13.9 % (11.5-14.0); SEGMENTED NEUTROPHILS % (AUTO) 69.4 % (42-78); TOTAL CELLS COUNTED % (AUTO) 100 %; WHITE BLOOD COUNT 8.3 10^3/uL (4.0-10.5)
[2019-04-25 20:33] LABS: APPEARANCE,URINE CLEAR; BILIRUBIN,URINE NEGATIVE (NEGATIVE); COLOR,URINE YELLOW; GLUCOSE, URINE >=500 mg/dL (NEGATIVE); KETONES,URINE NEGATIVE (NEGATIVE); LEUKOCYTE ESTERASE,URINE NEGATIVE (NEGATIVE); NITRITE,URINE NEGATIVE (NEGATIVE); PROTEIN,URINE NEGATIVE (NEGATIVE); URINE SPECIFIC GRAVITY 1.029; UROBILINOGEN,URINE NEGATIVE mg/dL (<2.0)
[2019-04-25 20:39] LABS: INTERNATIONAL RATION (INR) 0.89; PROTHROMBIN TIME 12.5 SEC (11.4-15.4)
[2019-04-25 20:40] LABS: PARTIAL THROMBOPLASTIN TIME 27.7 SEC (23.5-35.8)
[2019-04-25 20:53] LABS: ALANINE AMINOTRANSFERASE 63 U/L (21-72); ALBUMIN 4.5 g/dL (3.5-5.0); ALKALINE PHOSPHATASE 94 U/L (38-126); ANION GAP 13 (5-19); ASPARTATE AMINO TRANSFERASE 49 U/L (17-59); BILIRUBIN,DIRECT 0.3 mg/dL (0.0-0.4); BILIRUBIN,TOTAL 0.7 mg/dL (0.2-1.3); BLOOD UREA NITROGEN 12 mg/dL (7-20); CARBON DIOXIDE 27 mmol/L (22-30); CHLORIDE 100 mmol/L (98-107); GLUCOSE 145 mg/dL (75-110); POTASSIUM 4.4 mmol/L (3.6-5.0); SODIUM 139.7 mmol/L (137-145); TOTAL PROTEIN 7.8 g/dL (6.3-8.2)
--- NOTE | 2019-04-25 20:56 | RADIOLOGY REPORT (SQ) ---
XR CHEST 2 VIEWS HISTORY: Chest pain. Headache. Dizziness. COMPARISON: 09/06/2018 FINDINGS: The heart size is within normal limits. No consolidation, pleural effusion, or pneumothorax is seen. There are no acute bony findings. IMPRESSION: No evidence of acute cardiopulmonary disease.
--- NOTE | 2019-04-25 20:56 | RADIOLOGY REPORT (SQ) ---
EXAM DESCRIPTION: CT HEAD WITHOUT IV CONTRAST COMPLETED DATE/TME: 04/25/2019 20:04 CLINICAL HISTORY: 64 years Male chest pain headache dizziness eye pressure COMPARISON: None. TECHNIQUE: Contiguous axial CT images obtained through the brain without IV contrast. This exam was performed according to our department optimization program which includes automated exposure control, adjustment of the mA and/or kv according to patient size and/or use of iterative reconstruction technique. FINDINGS: The ventricles and sulci are within normal limits for the patient's age. No midline shift or mass effect. No masses identified. No acute intracranial hemorrhage. No fluid or significant mucosal thickening in the visualized paranasal sinuses. No depressed calvarial fractures. IMPRESSION: No acute intracranial abnormality is identified.
[2019-04-25 21:03] LABS: CREATINE KINASE MB 1.67 ng/mL (<4.55)
[2019-04-25 21:05] LABS: TROPONIN I < 0.012 ng/mL
[2019-04-25] MEDS ORDERED: METOCLOPRAMIDE HCL INJ/PF 10 MG/2 ML SDV IV ONE (22:11)
[2019-04-25] MEDS ORDERED: MECLIZINE HCL 25 MG TABLET PO ONE (22:11)
[2019-04-25] MEDS ORDERED: DIPHENHYDRAMINE HCL 50 MG/ML VIAL IV ONE (22:11)
--- NOTE | 2019-04-25 22:21 | EKG REPORT ---
SEVERITY:- NORMAL ECG - SINUS RHYTHM : Confirmed by: Ruth Graves MD 25-Apr-2019 22:20:19
--- NOTE | 2019-04-25 23:45 | ER Document Report ---
ED General - General Chief Complaint: Chest Pain Stated Complaint: EYE,CHEST PAIN/HEADACHE Time Seen by Provider: 04/25/19 20:04 Primary Care Provider: RAJESH AGUILAR MD [Primary Care Provider] - Follow up as needed Mode of Arrival: Ambulatory Information source: Patient, Relative, [facility] Records Notes: 64-year-old male with hypertension, hyperlipidemia, atrial fibrillation, type 2 diabetes, aortic stenosis presents with complaint of headache and chest pain. Patient states headache started this afternoon. It is located in the top of his head and described as a dull ache. Patient reports blurred vision that occurred this afternoon and lasted approximately 3 minutes and has not reoccurred. He denies any recent head injury, associated eating. He has no temporal artery tenderness. Patient's chest pain occurred at approximately 330 today. He described it as a chest tightness that is currently not present. Patient reports a recent admission to [facility] where he underwent a cardiac catheterization which she reports was normal and he did not reach require any stent placement. He does state that he was told he needs an aortic valve replacement. Patient has an upcoming appointment tomorrow at 8:30 AM with the cardiothoracic surgeon. TRAVEL OUTSIDE OF THE [place] IN LAST 30 DAYS: No - HPI Onset: This afternoon Onset/Duration: Gradual, Persistent Quality of pain: Achy, Throbbing Severity: Mild Associated symptoms: Allergy/hay fever, Chest pain, Headache, Shortness of breath - Chronic for 2 years. denies: Body/muscle aches, Fever, Leg swelling, Nausea, Vomiting Exacerbated by: Denies Relieved by: Denies Similar symptoms previously: Yes Recently seen / treated by doctor: Yes - Related Data Allergies/Adverse Reactions: No Known Allergies Allergy (Verified 04/25/19 18:49) Past Medical History - General Information source: Patient - Social History Smoking Status: Former Smoker Frequency of alcohol use: None Drug Abuse: None Lives with: Spouse/Significant other Family History: Reviewed & Not Pertinent Patient has suicidal ideation: No Patient has homicidal ideation: No - Past Medical History Cardiac Medical History: Reports: Hx Atrial Fibrillation, Hx Hypercholesterolemia, Hx Hypertension Endocrine Medical History: Reports: Hx Diabetes Mellitus Type 2, Hx Hypothyroidism Renal/ Medical History: Denies: Hx Peritoneal Dialysis Musculoskeletal Medical History: Reports Hx Arthritis, Denies Hx Systemic Lupus Erythematosus Traumatic Medical History: Reports: Hx Fractures - fx right femur 1972 Past Surgical History: Reports: Hx Appendectomy, Hx Cardiac Catheterization - Immunizations Hx Diphtheria, Pertussis, Tetanus Vaccination: Yes Review of Systems - Review of Systems Notes: REVIEW OF SYSTEMS: CONSTITUTIONAL : Denies fever, chills, or sweats. Denies recent illness. Denies weight loss, recent hospitalizations. EENT: Denies visual changes, eye pain. Denies sore throat, oral lesions, d ifficulty swallowing. CARDIOVASCULAR: + chest pain. Denies palpitations. Denies lower extremity ed chago. RESPIRATORY: Denies cough. + shortness of breath, denies wheezing. GASTROINTESTINAL: Denies abdominal pain or distention. Denies nausea, vomiting, or diarrhea. Denies blood in vomitus, stools, or per rectum. Denies black, tarry stools. Denies constipation. GENITOURINARY: Denies difficulty urinating, painful urination, frequency, blood in urine, testicular pain or penile discharge. MUSCULOSKELETAL: Denies back or neck pain or stiffness. Denies joint pain or swelling. SKIN: Denies rash, lesions or sores. HEMATOLOGIC : Denies easy bruising or bleeding. LYMPHATIC: Denies swollen glands. NEUROLOGICAL: Denies confusion or altered mental status. Denies loss of consciousness. Denies dizziness or lightheadedness. Denies weakness or paralysis. Denies problems difficulty with ambulation, slurred speech. Denies sensory loss, numbness, or tingling. Denies seizures. PSYCHIATRIC: Denies anxiety or stress. Denies depression, suicidal ideation, or Physical Exam - Vital signs Vitals: Temp Pulse Resp BP Pulse Ox 98.1 F 85 16 101/64 93 04/25/19 19:30 04/25/19 19:30 04/25/19 19:30 04/25/19 19:30 04/25/19 19:30 - Notes Notes: PHYSICAL EXAMINATION: GENERAL: Well-appearing, well-nourished and in no acute distress. HEAD: Atraumatic, normocephalic. EYES: Pupils equal round and reactive to light, extraocular movements intact, sclera anicteric, conjunctiva are normal. ENT: Nares patent, oropharynx clear without exudates. Moist mucous membranes. NECK: Normal range of motion, supple without lymphadenopathy LUNGS: Breath sounds clear to auscultation bilaterally and equal. No wheezes rales or rhonchi. HEART: Regular rate and rhythm 3/4 systolic harsh murmurs ABDOMEN: Soft, nontender, nondistended abdomen. No guarding, no rebound. No masses appreciated. Musculoskeletal: Normal range of motion, no pitting or edema. No cyanosis. NEUROLOGICAL: Cranial nerves grossly intact. Normal speech, normal gait. Normal sensory, motor exams PSYCH: Normal mood, normal affect. SKIN: Warm, Dry, normal turgor, no rashes or lesions noted. Course - Re-evaluation Re-evalutation: 04/25/19 23:48 Laboratory 04/25/19 04/25/19 04/25/19 20:12 20:17 20:17 WBC 8.3 RBC 5.24 Hgb 16.1 Hct 47.2 MCV 90 MCH 30.6 MCHC 34.0 RDW 13.9 Plt Count 220 Seg Neutrophils % 69.4 Lymphocytes % 16.1 Monocytes % 8.7 Eosinophils % 5.1 Basophils % 0.7 Absolute Neutrophils 5.7 Absolute Lymphocytes 1.3 Absolute Monocytes 0.7 Absolute Eosinophils 0.4 Absolute Basophils 0.1 PT 12.5 INR 0.89 APTT 27.7 Sodium Potassium Chloride Carbon Dioxide Anion Gap BUN Creatinine Est GFR ( Amer) Est GFR (Non-Af Amer) Glucose Calcium Total Bilirubin Direct Bilirubin Neonat Total Bilirubin Neonat Direct Bilirubin Neonat Indirect Bili AST ALT Alkaline Phosphatase CK-MB (CK-2) Troponin I Total Protein Albumin Urine Color YELLOW Urine Appearance CLEAR Urine pH 5.0 Ur Specific [place] 1.029 Urine Protein NEGATIVE Urine Glucose (UA) >=500 H Urine Ketones NEGATIVE Urine Blood NEGATIVE Urine Nitrite NEGATIVE Urine Bilirubin NEGATIVE Urine Urobilinogen NEGATIVE Ur Leukocyte Esterase NEGATIVE Urine WBC (Auto) 1 Urine Mucus (Auto) RARE Urine Ascorbic Acid NEGATIVE 04/25/19 04/25/19 04/25/19 20:17 20:17 22:16 WBC RBC Hgb Hct MCV MCH MCHC RDW Plt Count Seg Neutrophils % Lymphocytes % Monocytes % Eosinophils % Basophils % Absolute Neutrophils Absolute Lymphocytes Absolute Monocytes Absolute Eosinophils Absolute Basophils PT INR APTT Sodium 139.7 Potassium 4.4 Chloride 100 Carbon Dioxide 27 Anion Gap 13 BUN 12 Creatinine 0.89 Est GFR ( Amer) > 60 Est GFR (Non-Af Amer) > 60 Glucose 145 H Calcium 10.0 Total Bilirubin 0.7 Direct Bilirubin 0.3 Neonat Total Bilirubin Not Reportable Neonat Direct Bilirubin Not Reportable Neonat Indirect Bili Not Reportable AST 49 ALT 63 Alkaline Phosphatase 94 CK-MB (CK-2) 1.67 Troponin I < 0.012 < 0.012 Total Protein 7.8 Albumin 4.5 Urine Color Urine Appearance Urine pH Ur Specific [place] Urine Protein Urine Glucose (UA) Urine Ketones Urine Blood Urine Nitrite Urine Bilirubin Urine Urobilinogen Ur Leukocyte Esterase Urine WBC (Auto) Urine Mucus (Auto) Urine Ascorbic Acid Chest X-Ray 04/25/19 20:04 IMPRESSION: No evidence of acute cardiopulmonary disease. Head CT 04/25/19 20:04 IMPRESSION: No acute intracranial abnormality is identified. Temp Pulse Resp BP Pulse Ox 97.8 F 85 20 116/75 97 04/25/19 21:30 04/25/19 19:30 04/25/19 22:01 04/25/19 22:00 04/25/19 22:01 64-year-old male presents with complaint of headache and chest pain that occurred today. Vital signs reviewed and within normal limits. Patient does not appear toxic or dehydrated. He is in no acute distress. EKG was obtained which showed the patient to be in normal sinus rhythm at a rate of 72. Patient has a normal neurologic exam. CBC is without leukocytosis or anemia. CMP is without electrolyte abnormalities, cardiac enzymes including delta troponin within normal limits. Chest x-ray showed no evidence of cardio pulmonary d isease and head CT was within normal limits. Patient received Reglan, Benadryl and on reevaluation reports resolution of his headache. Patient was encouraged to keep his upcoming appointment with his cardiothoracic surgeon tomorrow. He was provided copies of his imaging and lab work that were performed today. Patient was evaluated and treated as appropriate for the patient's presenting symptoms and complaint, with consideration of any critical or life threatening conditions that may be associated with their obtained history and exam as noted above. All results were discussed with patient and his who is at the bedside patient provided the opportunity to ask questions, and express concerns. Patient was educated on treatments based on their presumed diagnosis as noted above. At this time we will discharge the patient with return precautions and follow-up recommendations. Verbal discharge instructions given a the bedside. Medication warnings reviewed. Patient is in agreement with this plan and has verbalized understanding of return precautions. After careful consideration I feel that that patient can be safely discharged from the emergency department, they were advised to followup with a primary care physician in 2-3 days. Dictation on this chart was performed using voice recognition software and may result in unintended grammatical, spelling, syntax or errors. - Vital Signs Vital signs: Temp Pulse Resp BP Pulse Ox 97.8 F 85 20 116/75 97 04/25/19 21:30 04/25/19 19:30 04/25/19 22:01 04/25/19 22:00 04/25/19 22:01 - Laboratory Result Diagrams: 04/25/19 20:17 04/25/19 20:17 Laboratory results interpreted by me: 04/25/19 04/25/19 20:12 20:17 Glucose 145 H Urine Glucose (UA) >=500 H - Diagnostic Test Radiology reviewed: Image reviewed, Reports reviewed - EKG Interpretation by Me EKG shows normal: Sinus rhythm Rate: Normal Rhythm: NSR When compared to previous EKG there are: No significant change Discharge - Discharge Clinical Impression: Systolic murmur of aorta Headache Qualifiers: Headache type: unspecified Headache chronicity pattern: unspecified pattern Intractability: not intractable Qualified Code(s): R51 - Headache Chest pain Qualifiers: Chest pain type: unspecified Qualified Code(s): R07.9 - Chest pain, unspecified Condition: Good Disposition: HOME, SELF-CARE Instructions: Chest Pain of Unclear Cause ([facility]) Additional Instructions: You have been seen in the Emergency Department (ED) for a headache. Please use Tylenol (acetaminophen) or Motrin (ibuprofen) as needed for symptoms, but only as written on the box. As we have discussed, please follow up with your primary care doctor as soon as possible regarding today's ED visit and your headache symptoms. Call your doctor or return to the ED if you have a worsening headache, sudden and severe headache, confusion, slurred speech, facial droop, weakness or numbness in any arm or leg, extreme fatigue, or other symptoms that concern you. You were seen today for chest pain. The exact cause of your pain is unclear. However, based on your cardiac enzyme testing, chest x-ray, and EKG it does not appear that it is from an immediately life-threatening cause at this time. Although your testing here is normal is critical that you follow-up with your primary care physician for continued evaluation of this chest pain and possible stress testing. I recommended you see your physician within the next 24-48 hours to be evaluated for consideration of a stress test. Please return to emergency department immediately if you have worsening of your chest pain, shortness of breath, vomiting, become unable to exert yourself due to pain or difficulty breathing, you pass out, or have any pain that radiates into your arms, jaw, or back. Please also return if you have any additional symptoms that are concerning to you. Referrals: RAJESH AGUILAR MD [Primary Care Provider] - Follow up in 3-5 days
[2019-04-26 00:02] VITALS: BP 116/76
== END 2019-04-26 00:15 | disposition home or self-care (01) ==
LOC: ER 18:47
DX: R07.89 Other chest pain (principal); R51 Headache; I35.8 Other nonrheumatic aortic valve disorders; R06.02 Shortness of breath; I10 Essential (primary) hypertension; E11.9 Type 2 diabetes mellitus without complications; H53.8 Other visual disturbances; Z98.890 Other specified postprocedural states
CPT/HCPCS: 93005; 99285; 96374; 96375; 36415; 82553; 85025; 85610; 85730; 80053; 81001; 84484; 71046; 70450; 93010; J1200; J2765

== ENCOUNTER → 2020-01-24 | Outpatient (CLI) | payer BC ==
--- NOTE | 2020-01-24 17:39 | RADIOLOGY REPORT (SQ) ---
EXAM DESCRIPTION: CHEST PA/LATERAL COMPLETED DATE/TIME: 01/24/2020 4:08 pm REASON FOR STUDY: COUGH COMPARISON: 04/25/2019 EXAM PARAMETERS: NUMBER OF VIEWS: two views TECHNIQUE: Digital Frontal and Lateral radiographic views of the chest acquired. RADIATION DOSE: NA LIMITATIONS: none FINDINGS: LUNGS AND PLEURA: No opacities, masses or pneumothorax. No pleural effusion. MEDIASTINUM AND HILAR STRUCTURES: No masses or contour abnormalities. HEART AND VASCULAR STRUCTURES: Heart normal size. No evidence for failure. BONES: No acute findings. HARDWARE: None in the chest. OTHER: No other significant finding. IMPRESSION: NO SIGNIFICANT RADIOGRAPHIC FINDING IN THE CHEST. TECHNICAL DOCUMENTATION: JOB ID: [id number] [employer]- All Rights Reserved Reading location - IP/workstation name: [email or web address]
== END ==
LOC: RAD 15:20
PROVIDERS: ATTEND Physician Assistant
DX: R05 Cough (principal)
CPT/HCPCS: 71046

== ENCOUNTER → 2020-05-28 | Outpatient (CLI) | payer BC ==
--- NOTE | 2020-05-28 12:19 | RADIOLOGY REPORT (SQ) ---
EXAM DESCRIPTION: CHEST PA/LATERAL IMAGES COMPLETED DATE/TIME: 05/28/2020 12:00 pm REASON FOR STUDY: SHORTNESS OF BREATH; NECK PAIN COMPARISON: 01/24/2020 EXAM PARAMETERS: NUMBER OF VIEWS: two views TECHNIQUE: Digital Frontal and Lateral radiographic views of the chest acquired. RADIATION DOSE: NA LIMITATIONS: none FINDINGS: LUNGS AND PLEURA: Stable in appearance with mild hyperexpansion. There is a calcified gra nuloma in the left lung base. No consolidation. No pneumothorax or effusion. MEDIASTINUM AND HILAR STRUCTURES: No masses or contour abnormalities. HEART AND VASCULAR STRUCTURES: Heart normal size. No evidence for failure. BONES: No acute findings. HARDWARE: Sternotomy wires are in place. OTHER: No other significant finding. IMPRESSION: Stable two-view chest. No acute findings. TECHNICAL DOCUMENTATION: JOB ID: [id number] [employer]- All Rights Reserved Reading location - IP/workstation name: [email or web address]
--- NOTE | 2020-05-28 12:20 | RADIOLOGY REPORT (SQ) ---
EXAM DESCRIPTION: C SP 4 OR 5 VIEWS IMAGES COMPLETED DATE/TIME: 05/28/2020 12:00 pm REASON FOR STUDY: SHORTNESS OF BREATH; NECK PAIN R06.02 SHORTNESS OF BREATH M54.2 CERVICALGIA COMPARISON: None. NUMBER OF VIEWS: Five views. TECHNIQUE: AP, lateral, obliques and odontoid radiographic images acquired of the cervical spine. LIMITATIONS: None. FINDINGS: MINERALIZATION: Normal. ALIGNMENT: Anatomic. VERTEBRAE: Vertebral bodies of normal height. DISCS: Mild multilevel disc space narrowing with small anterior osteophytes. FORAMINA: Foraminal narrowing on the right at C3-4, C4-5 and C5-C6. LATERAL AND POSTERIOR ELEMENTS: Facets, lateral masses and spinous processes without significant find ings. HARDWARE: None in the spine. SOFT TISSUES: No masses or calcifications. Lung apices clear. OTHER: No other significant finding. IMPRESSION: Multilevel spondylosis. Right-sided foraminal narrowing as described. TECHNICAL DOCUMENTATION: JOB ID: [id number] 2010 [employer]- All Rights Reserved Reading location - IP/workstation name: [email or web address]
== END ==
LOC: OD 11:34
PROVIDERS: ATTEND Physician Assistant
DX: M47.812 Spondylosis without myelopathy or radiculopathy, cervical region (principal); M54.2 Cervicalgia; R06.02 Shortness of breath
CPT/HCPCS: 71046; 72050

== ENCOUNTER → 2020-06-03 | Outpatient (CLI) | payer BC ==
--- NOTE | 2020-06-03 19:05 | XCELERA REPORT ---
[address] [address] Transthoracic Echocardiogram Report Name: FRANCISCO KENNY Age: 65 yrs Gender: Male : 1955 Patient Status: Outpatient Patient Location: Study Date: 06/03/2020 09:11 AM History: Dyspnea s/;p AVR Height: 69 in Weight: 214 lb BSA: 2.1 m2 Procedure: A complete two-dimensional transthoracic echocardiogram was performed (2D, M-mode, spectral and color flow Doppler). Reason For Study: SOB Previous Evaluation: No previous studies were available. History: Shortness of breath. s/p AVR. Ordering Physician: DENVER DUMONT Performed By: Dre Brice Interpretation Summary Left ventricular systolic function is normal. The Ejection Fraction estimate is 60-65% The right ventricle is normal in size and function. There is a trace amount of mitral regurgitation There is a bioprosthetic aortic valve. The prosthetic aortic valve appears to open well. There is a trace amount of tricuspid regurgitation There is mild pulmonary hypertension by echo There is no pericardial effusion. MMode/2D Measurements & Calculations RVDd: 3.7 cm LVIDd: 5.1 cm FS: 34.1 % Ao root diam: 3.2 cm IVSd: 0.79 cm LVIDs: 3.3 cm EDV(Teich): Ao root area: LVPWd: 0.94 cm 121.5 ml 8.2 cm2 ESV(Teich): 45.3 ml LA dimension: 4.3 cm EF(Teich): 62.7 % LVOT diam: 1.9 cmLVLd ap4: 9.1 cm SV(MOD-sp4): LVOT area: EDV(MOD-sp4): 78.0 ml 126.0 ml 2.7 cm2 LVLs ap4: 7.7 cm ESV(MOD-sp4): 48.0 ml EF(MOD-sp4): 61.9 % Doppler Measurements & Calculations MV E max melvin: MV P1/2t max melvin: Ao V2 max: LV V1 max P.8 cm/sec 96.7 cm/sec 262.4 cm/sec 5.4 mmHg MV A max melvin: MV P1/2t: 75.8 msec Ao max PG: LV V1 mean P.9 cm/sec MVA(P1/2t): 2.9 cm2 27.5 mmHg 2.7 mmHg MV E/A: 1.7 MV dec slope: Ao V2 mean: LV V1 max: 373.6 cm/sec2 192.8 cm/sec 115.1 cm/sec MV dec time: 0.24 secAo mean PG: LV V1 mean: 16.5 mmHg 76.4 cm/sec Ao V2 VTI: 61.1 cm LV V1 VTI: 24.4 cm SUKUMAR(I,D): 1.1 cm2 LV dP/dt: 826.0 mmHg/s SUKUMAR(V,D): 1.2 cm2 SV(LVOT): 66.4 ml PA V2 max: TR max melvin: MV P1/2t-pr_phl: 102.2 cm/sec 246.7 cm/sec 75.8 msec PA max P.2 mmHg TR max P.3 mmHg Left Ventricle The left ventricle is normal in size. There is normal left ventricular wall thickness. Left ventricular systolic function is normal. The Ejection Fraction estimate is 60-65%. Doppler measurements suggest pseudonormalized left ventricular relaxation, which is associated with grade II/IV or mild to moderate diastolic dysfunction. No regional wall motion abnormalities noted. Right Ventricle The right ventricle is normal in size and function. Atria The right atrium is normal. The left atrium is mildly dilated. The thickening of interatrial septum suggests lipomatous hypertrophy. Mitral Valve The mitral valve is grossly normal. There is no mitral valve stenosis. There is a trace amount of mitral regurgitation. Aortic Valve There is a bioprosthetic aortic valve. The prosthetic aortic valve appears to open well. Ao V=2.6 m/s Mean PG= 15 mm Hg. Tricuspid Valve The tricuspid valve is normal in structure and function. There is a trace amount of tricuspid regurgitation. Best estimated RVSP is approximately 30-35 mm Hg mm/Hg. There is mild pulmonary hypertension by echo. Pulmonic Valve The pulmonic valve is normal in structure and function. Great Vessels The inferior vena cava appeared normal and decreased > 50% with respiration (RAP 5-10 mmHg). Effusions There is no pericardial effusion. : DENVER DUMONT Anil
== END ==
LOC: SP 08:42
PROVIDERS: ATTEND Internal Medicine
DX: Z95.2 Presence of prosthetic heart valve (principal); R06.02 Shortness of breath
CPT/HCPCS: 93306

== ENCOUNTER 2020-08-26 09:53 | Emergency (ER) | payer BC ==
--- NOTE | 2020-08-26 10:30 | ER Document Report ---
ED Medical Screen (RME) - General Chief Complaint: Eye Problem Stated Complaint: EYE SWELLING Time Seen by Provider: 08/26/20 10:22 Primary Care Provider: SURAJ SHOOK PA [Primary Care Provider] - Follow up as needed TRAVEL OUTSIDE OF THE [place] IN LAST 30 DAYS: No - HPI Notes: 08/26/20 10:28 65-year-old male sent over by Dr. Cesar Jovel, his risk intern for concerns of swelling of his right optic nerve and now he noticed after his dilated eye exam that the patient has bilateral swollen optic nerves and is requesting an MRI with and without contrast of his brain. Patient states that he has had right eye cloudiness for the last 2 months that is become progressively worse. Also he complains of having headaches. Denies any fevers chills, chest pain shortness of breath, nausea vomiting or diarrhea. Denies any confusion, numbness or tingling down his arms or legs. Consulted with Dr. Wilson, supervising ER physician who took the call from Dr. Jovel requesting an MRI of his head and requested also to get basic lab work on initial triage. I have greeted and performed a rapid initial assessment of this patient. A comprehensive ED assessment and evaluation of the patient, analysis of test results and completion of the medical decision making process will be conducted by additional ED providers. PHYSICAL EXAMINATION: GENERAL: Well-appearing, well-nourished and in no acute distress. HEAD: Atraumatic, normocephalic. EYES: Pupils dilated, conjunctiva are normal. NECK: Normal range of motion CV: s1, s2 regular LUNGS: No respiratory distress NEUROLOGICAL: Normal speech, normal gait. - Related Data Allergies/Adverse Reactions: No Known Allergies Allergy (Verified 04/25/19 18:49) Past Medical History - Past Medical History Cardiac Medical History: Reports: Hx Atrial Fibrillation, Hx Hypercholesterolemia, Hx Hypertension Endocrine Medical History: Reports: Hx Diabetes Mellitus Type 2, Hx Hypothyroidism Renal/ Medical History: Denies: Hx Peritoneal Dialysis Musculoskeltal Medical History: Reports Hx Arthritis, Denies Hx Systemic Lupus Erythematosus Traumatic Medical History: Reports: Hx Fractures - fx right femur 1971 Past Surgical History: Reports: Hx Appendectomy, Hx Cardiac Catheterization - Immunizations Hx Diphtheria, Pertussis, Tetanus Vaccination: Yes Physical Exam - Vital signs Vitals: Temp Pulse Resp BP Pulse Ox 97.7 F 63 18 124/65 97 08/26/20 10:05 08/26/20 10:05 08/26/20 10:05 08/26/20 10:05 08/26/20 10:05 Course - Vital Signs Vital signs: Temp Pulse Resp BP Pulse Ox 97.7 F 63 18 124/65 97 08/26/20 10:05 08/26/20 10:05 08/26/20 10:05 08/26/20 10:05 08/26/20 10:05 Doctor's Discharge - Discharge Referrals: SURAJ SHOOK PA [Primary Care Provider] - Follow up as needed
[2020-08-26 11:21] LABS: ABSOLUTE BASOPHILS # (AUTO) 0.1 10^3/uL (0.0-0.2); ABSOLUTE EOSINOPHILS # (AUTO) 0.3 10^3/uL (0.0-0.6); ABSOLUTE MONOCYTES (AUTO) 0.6 10^3/uL (0.1-1.4); ABSOLUTE NEUT (AUTO) 3.7 10^3/uL (1.7-8.2); EOSINOPHILS % (AUTO) 4.5 % (0-6); HEMATOCRIT 32.6 % (37.9-51.0); HEMOGLOBIN 10.3 g/dL (13.5-17.0); MEAN CORPUSCULAR HEMOGLOBIN 22.2 pg (27.0-33.4); MEAN CORPUSCULAR HGB CONC 31.6 g/dL (32.0-36.0); MEAN CORPUSCULAR VOLUME 70 fl (80-97); MONOCYTES % (AUTO) 11.2 % (3-13); PLATELET COUNT 247 10^3/uL (150-450); RED BLOOD COUNT 4.63 10^6/uL (4.35-5.55); RED CELL DISTRIBUTION WIDTH 18.2 % (11.5-14.0); SEGMENTED NEUTROPHILS % (AUTO) 66.3 % (42-78); TOTAL CELLS COUNTED % (AUTO) 100 %; WHITE BLOOD COUNT 5.6 10^3/uL (4.0-10.5)
[2020-08-26 11:41] LABS: ANION GAP 9 (5-19); BLOOD UREA NITROGEN 11 mg/dL (7-20); CALCIUM 8.9 mg/dL (8.4-10.2); CARBON DIOXIDE 25 mmol/L (22-30); CHLORIDE 104 mmol/L (98-107); GLUCOSE 143 mg/dL (75-110); POTASSIUM 4.6 mmol/L (3.6-5.0)
--- NOTE | 2020-08-26 16:36 | RADIOLOGY REPORT (SQ) ---
EXAM DESCRIPTION: MRI HEAD COMBO IMAGES COMPLETED DATE/TIME: 08/26/2020 4:22 pm REASON FOR STUDY: optic nerve swelling, headaches,sent by Dr. Jovel COMPARISON: 11/03/2012 TECHNIQUE: Multiplanar imaging includes noncontrasted T1, T2, FLAIR, Diffusion with ADC map and post gadolinium contrast T1 sequences. Images stored on PACS. CONTRAST TYPE AND DOSE: 20 mL Prohance. RENAL FUNCTION: Not indicated. ACR Type II contrast agent associated with few, if any, unconfounded cases of NSF LIMITATIONS: None. FINDINGS: ANATOMY: No anomalies. Normal vascular flow voids. Pituitary fossa normal. CSF SPACES: Atrophy-induced prominence of CSF spaces and ventricles. CEREBRUM: High-signal intensity lesions scattered throughout the white matter on FLAIR imaging with d istribution suggesting chronic micro-vascular ischemic change. No evidence of hemorrhage, mass, extra axial fluid collection or acute ischemic change. No enhancing lesions. POSTERIOR FOSSA: No signal alteration. No hemorrhage. No edema, masses, or mass effect. Internal laura tory canals, cerebello-pontine angles, mastoids normal. No enhancing lesions. ORBITS: No masses. Globes normal. PARANASAL SINUSES: No fluid levels. DIFFUSION: Normal. No evidence of recent infarct. OTHER: No other significant finding. IMPRESSION: Chronic ischemic changes. Normal orbits. EVIDENCE OF ACUTE STROKE: NO. TECHNICAL DOCUMENTATION: JOB ID: [id number] 2010 [employer]- All Rights Reserved Reading location - IP/workstation name: [email or web address]
--- NOTE | 2020-08-26 17:08 | ER Document Report ---
ED Eye Complaint - General Chief Complaint: Eye Problem Stated Complaint: EYE SWELLING Time Seen by Provider: 08/26/20 10:22 Primary Care Provider: SURAJ SHOOK PA [NO LOCAL MD] - Follow up as needed Mode of Arrival: Ambulatory Information source: Patient TRAVEL OUTSIDE OF THE [place] IN LAST 30 DAYS: No - HPI Notes: Patient was sent from his spotter driver office. His spotter driver is Dr. Jovel. I personally spoke with Dr. Jovel. Dr. Jovel states that patient has been having headaches and that he noticed 1 month ago that patient had unilateral swelling of the posterior optic structures. He states he now feels it is b ilateral and would like the patient to have an MRI. Patient describes the headache as mild to moderate. It is constant. It seems to be slightly worse on the right. But it does radiate across his head. No real increasing or decreasing factors. No vomiting. No incontinence. No trouble with walking. - Related Data Allergies/Adverse Reactions: No Known Allergies Allergy (Verified 04/25/19 18:49) Past Medical History - General Information source: Patient - Social History Smoking Status: Former Smoker Frequency of alcohol use: None Drug Abuse: None Family History: Reviewed & Not Pertinent - Past Medical History Cardiac Medical History: Reports: Hx Atrial Fibrillation, Hx Hypercholesterolemia, Hx Hypertension Endocrine Medical History: Reports: Hx Diabetes Mellitus Type 2, Hx Hypothyroidism Renal/ Medical History: Denies: Hx Peritoneal Dialysis Musculoskeletal Medical History: Reports Hx Arthritis, Denies Hx Systemic Lupus Erythematosus Traumatic Medical History: Reports: Hx Fractures - fx right femur 1972 Past Surgical History: Reports: Hx Appendectomy, Hx Cardiac Catheterization - Immunizations Hx Diphtheria, Pertussis, Tetanus Vaccination: Yes Review of Systems - Review of Systems Constitutional: denies: Chills, Fever Cardiovascular: denies: Chest pain, Palpitations Respiratory: denies: Cough, Short of breath -: Yes All other systems reviewed and negative Physical Exam - Vital signs Vitals: Temp Pulse Resp BP Pulse Ox 97.7 F 63 18 124/65 97 08/26/20 10:05 08/26/20 10:05 08/26/20 10:05 08/26/20 10:05 08/26/20 10:05 Interpretation: Normal - General General appearance: Appears well, Alert - HEENT Head: Normocephalic, Atraumatic Eyes: Normal Pupils: PERRL - Respiratory Respiratory status: No respiratory distress Chest status: Nontender Breath sounds: Normal Chest palpation: Normal - Cardiovascular Rhythm: Regular Heart sounds: Normal auscultation Murmur: No - Abdominal Inspection: Normal Distension: No distension Bowel sounds: Normal Tenderness: Nontender Organomegaly: No organomegaly - Back Back: Normal, Nontender - Extremities General upper extremity: Normal inspection, Nontender, Normal color, Normal ROM, Normal temperature General lower extremity: Normal inspection, Nontender, Normal color, Normal ROM, Normal temperature, Normal weight bearing. No: Ubaldo's sign - Neurological Neuro grossly intact: Yes Cognition: Normal Orientation: AAOx4 [place] Coma Scale Eye Opening: Spontaneous Teri Coma Scale Verbal: Oriented [place] Coma Scale Motor: Obeys Commands [place] Coma Scale Total: 15 Speech: Normal Motor strength normal: LUE, RUE, LLE, RLE Sensory: Normal - Psychological Associated symptoms: Normal affect, Normal mood - Skin Skin Temperature: Warm Skin Moisture: Dry Skin Color: Normal Course - Re-evaluation Re-evalutation: 08/26/20 17:04 Patient referred from ophthalmology for some swelling of the posterior orbital s tructures. Obviously the concern was about increased intracranial pressure. There is no evidence of this by MRI. In addition patient has no evidence of this outside of the orbital structures. For example patient has no trouble with ataxia, nose trouble with nausea vomiting, and has no trouble with incontinence. At this time I have discussed the case previously with Dr. Jovel and the decision was made that if the MRI was normal, which it is, he will follow-up with Dr. Jovel tomorrow. - Vital Signs Vital signs: Temp Pulse Resp BP Pulse Ox 97.7 F 63 18 124/65 97 08/26/20 10:05 08/26/20 10:05 08/26/20 10:05 08/26/20 10:05 08/26/20 10:05 - Laboratory Result Diagrams: 08/26/20 10:29 08/26/20 10:29 Laboratory results interpreted by me: 08/26/20 08/26/20 08/26/20 10:29 10:29 14:02 Hgb 10.3 L Hct 32.6 L MCV 70 L MCH 22.2 L MCHC 31.6 L RDW 18.2 H Glucose 143 H POC Glucose 141 H - Diagnostic Test Radiology reviewed: Image reviewed, Reports reviewed Discharge - Discharge Clinical Impression: Headache Qualifiers: Headache type: unspecified Headache chronicity pattern: acute headache Intractability: intractable Qualified Code(s): R51 - Headache Eye pain Qualifiers: Laterality: right Qualified Code(s): H57.11 - Ocular pain, right eye Condition: Stable Disposition: HOME, SELF-CARE Additional Instructions: Please call Dr. Jovel first thing in the morning to arrange follow-up Prescriptions: Butalb/Acetaminophen/Caffeine [Fioricet (50-325-40 mg) Tablet] 1 tab PO Q4H #20 tab Forms: Return to Work Referrals: KELVIN JOVEL MD [ASSOCIATE] - Follow up tomorrow
[2020-08-26 17:17] VITALS: BP 126/64
== END 2020-08-26 17:16 | disposition home or self-care (01) ==
LOC: ER 09:53
DX: R51 Headache (principal); H57.11 Ocular pain, right eye; I48.91 Unspecified atrial fibrillation; E78.00 Pure hypercholesterolemia, unspecified; I10 Essential (primary) hypertension; E11.9 Type 2 diabetes mellitus without complications
CPT/HCPCS: 99284; 36415; 82962; 85025; 80048; 70553; A9576

== ENCOUNTER → 2020-11-12 | Day surgery (SDC) | payer BC ==
[~2020-11-12] MED LIST: FENTANYL CITRATE INJ/PF 100 MCG/2 ML AMPUL ONE
--- NOTE | 2020-11-12 17:06 | RADIOLOGY REPORT (SQ) ---
EXAM DESCRIPTION: U/S FNA PAROTID IMAGES COMPLETED DATE/TIME: 11/12/2020 2:34 pm REASON FOR STUDY: (E07.89)OTHER SPECIFIED DISORDERS OF THYROID(K11.8)OTHER DISEASES OF SALIVA K11.8 OTHER DISEASES OF SALIVARY GLANDS E07.89 OTHER SPECIFIED DISORDERS OF THYROID COMPARISON: None. TECHNIQUE: The procedure, risks, benefits, and alternatives were discussed with the patient in the p reprocedural area, and all questions were answered. Informed consent was obtained verbally and in wri ting. The patient was then brought to the procedural suite, positioned supine on a gurney, and a time-out w as performed. Selected grayscale and color Doppler images of the hypoechoic mass in the right subman dibular region were then obtained ; based on review of these images an appropriate percutaneous acces s site was selected. The area around the selected access site was subsequently prepped and draped wit h 2% chlorhexidine utilizing standard sterile technique. Then, after the access site was anesthetized with 1% lidocaine, a 25 gauge needle was advanced into the lesion of interest utilizing sonographic guidance ; after each pass the sample was submitted to cytopathology for review and in total 2 passes were performed. Due to scan cellular tissue it was decided to proceed with an US-guided core needle biopsy. A 19 gauge coaxial needle was then advanced through the skin incision and into the mass utilizing son ographic guidance. After that, the inner stylet of the coaxial needle was removed and 3 20 gauge core samples were obtained of the mass - the samples were collected and submitted to cytopathology in for rayna. The coaxial needle was then removed and selected grayscale and color Doppler images of the mass were repeated and reviewed ; the images demonstrated no acute biopsy-related complication. The patient tolerated the procedure well with local anesthesia and 50 mcg of fentanyl, which was admi nistered at the direction of the performing physician by a registered nurse. At the end of the procedure the patient's condition was unchanged from the preprocedural baseline. Documentation of [id number] time the proceduralist spent monitoring the patient: 30 minutes. LIMITATIONS: None. FINDINGS: PATHOLOGY: Pending. IMPRESSION: Successful ultrasound-guided core needle biopsy of the hypoechoic mass in the right subm andibular region. COMMENT: Patient medication list reviewed: Yes- Quality ID# [id number]:Eligible professional attests to doc umenting in the medical record they obtained, updated, or reviewed the patient's current medications. TECHNICAL DOCUMENTATION: JOB ID: [id number] 2010 [employer]- All Rights Reserved Reading location - IP/workstation name: [email or web address]
--- NOTE | 2020-11-12 17:10 | RADIOLOGY REPORT (SQ) ---
EXAM DESCRIPTION: U/S THYROID/SFT TISS HD NECK IMAGES COMPLETED DATE/TIME: 11/12/2020 2:33 pm REASON FOR STUDY: (E07.89)OTHER SPECIFIED DISORDERS OF THYROID K11.8 OTHER DISEASES OF SALIVARY GLA NDS E07.89 OTHER SPECIFIED DISORDERS OF THYROID COMPARISON: None. TECHNIQUE: Dynamic and static hitchcock-scale images acquired of the thyroid gland. Selected additional c olor/power Doppler images recorded. All images stored to PACS. LIMITATIONS: None. FINDINGS: RIGHT LOBE: The right lobe of the thyroid gland measures 3.3 x 1 x 1.1 cm. The echotextur e of the lobe is homogeneous. There is no solid or cystic mass. LEFT LOBE: The left lobe of the thyroid gland measures 4 x 0.8 x 0.9 cm. The echotexture of the lobe is homogeneous. There is no solid or cystic mass. ISTHMUS: The isthmus of the thyroid gland measures 3 mm in AP diameter. The echotexture of the isthm us is homogeneous. There is no solid or cystic mass. OTHER: No other findings. IMPRESSION: NORMAL THYROID ULTRASOUND. TECHNICAL DOCUMENTATION: JOB ID: [id number] 2010 [employer]- All Rights Reserved Reading location - IP/workstation name: [email or web address]
== END ==
LOC: RAD 12:09
PROVIDERS: ATTEND Otolaryngology
DX: K11.8 Other diseases of salivary glands (principal); E07.89 Other specified disorders of thyroid
CPT/HCPCS: 88173 ×2; 88305 ×2; 10005; 76536; J3010

== ENCOUNTER 2020-11-21 12:13 | Emergency (ER) | payer BC ==
[2020-11-21] MEDS ORDERED: HYDROCODONE/ACETAMINOPHEN 5-325 MG TABLET PO ONE ×2 (13:25→16:00)
--- NOTE | 2020-11-21 13:26 | ER Document Report ---
ED Medical Screen (RME) - General Chief Complaint: Ear Pain Stated Complaint: PAIN/KNOT BEHIND RIGHT EAR Time Seen by Provider: 11/21/20 13:18 Primary Care Provider: DEVON KHOURY DO [Primary Care Provider] - Follow up as needed Mode of Arrival: Ambulatory Information source: Patient Notes: HPI; 65-year-old male past medical history significant for diabetes, hyperlip idemia, hypothyroidism with a recent neck biopsy in October presents to the emergency room today complaining of swelling and pain behind his right ear that started yesterday. He denies any trauma or injury. No fevers. Took ibuprofen last night with out relief. No dental issues. PE: Alert and oriented x3. Lungs: Clear to auscultation without rales, rhonchi, wheezes. Heart: Regular rate rhythm without murmurs, rubs, gallops. Patient with a 3 cm tender nonpalpable mass noted to the right posterior cervical chain. No erythema noted. Not warm to touch. Bilateral tympanic membranes without erythema or swelling. Bilateral outer ear canals without erythema or swelling. No dental abscess noted. I have greeted and performed a rapid initial assessment of this patient. A comprehensive ED assessment and evaluation of the patient, analysis of test results and completion of the medical decision making process will be conducted by additional ED providers. I have specifically instructed the patient or family members with the patient to immediately return to any nursing staff should anything change in the patient's condition or with their chief complaint. TRAVEL OUTSIDE OF THE [place] IN LAST 30 DAYS: No - Related Data Allergies/Adverse Reactions: No Known Allergies Allergy (Verified 11/21/20 13:21) Past Medical History - Past Medical History Cardiac Medical History: Reports: Hx Atrial Fibrillation, Hx Hypercholesterolemia, Hx Hypertension Endocrine Medical History: Reports: Hx Diabetes Mellitus Type 2, Hx Hypothyroidism Renal/ Medical History: Denies: Hx Peritoneal Dialysis Musculoskeltal Medical History: Reports Hx Arthritis, Denies Hx Systemic Lupus Erythematosus Traumatic Medical History: Reports: Hx Fractures - fx right femur 1971 Past Surgical History: Reports: Hx Appendectomy, Hx Cardiac Catheterization - Immunizations Hx Diphtheria, Pertussis, Tetanus Vaccination: Yes Physical Exam - Vital signs Vitals: Temp Pulse Resp BP Pulse Ox 98.0 F 78 20 146/61 H 97 11/21/20 12:16 11/21/20 12:16 11/21/20 12:16 11/21/20 12:16 11/21/20 12:16 Course - Vital Signs Vital signs: Temp Pulse Resp BP Pulse Ox 98.0 F 78 20 146/61 H 97 11/21/20 12:16 11/21/20 12:16 11/21/20 12:16 11/21/20 12:16 11/21/20 12:16 Doctor's Discharge - Discharge Referrals: DEVON KHOURY DO [Primary Care Provider] - Follow up as needed
[2020-11-21 13:54] LABS: ABSOLUTE BASOPHILS # (AUTO) 0.1 10^3/uL (0.0-0.2); ABSOLUTE EOSINOPHILS # (AUTO) 0.3 10^3/uL (0.0-0.6); ABSOLUTE MONOCYTES (AUTO) 0.8 10^3/uL (0.1-1.4); ABSOLUTE NEUT (AUTO) 4.1 10^3/uL (1.7-8.2); EOSINOPHILS % (AUTO) 4.5 % (0-6); HEMATOCRIT 32.5 % (37.9-51.0); HEMOGLOBIN 10.2 g/dL (13.5-17.0); LYMPHOCYTES % (AUTO) 15.4 % (13-45); MEAN CORPUSCULAR HGB CONC 31.6 g/dL (32.0-36.0); MEAN CORPUSCULAR VOLUME 66 fl (80-97); MONOCYTES % (AUTO) 12.3 % (3-13); PLATELET COUNT 238 10^3/uL (150-450); RED BLOOD COUNT 4.89 10^6/uL (4.35-5.55); RED CELL DISTRIBUTION WIDTH 18.9 % (11.5-14.0); SEGMENTED NEUTROPHILS % (AUTO) 66.8 % (42-78); TOTAL CELLS COUNTED % (AUTO) 100 %; WHITE BLOOD COUNT 6.2 10^3/uL (4.0-10.5)
[2020-11-21 14:18] LABS: ALBUMIN 4.1 g/dL (3.5-5.0); ALKALINE PHOSPHATASE 102 U/L (38-126); ANION GAP 6 (5-19); ASPARTATE AMINO TRANSFERASE 33 U/L (17-59); BILIRUBIN,DIRECT 0.1 mg/dL (0.0-0.4); BILIRUBIN,TOTAL 0.6 mg/dL (0.2-1.3); BLOOD UREA NITROGEN 12 mg/dL (7-20); CALCIUM 9.3 mg/dL (8.4-10.2); CARBON DIOXIDE 28 mmol/L (22-30); CHLORIDE 103 mmol/L (98-107); GLUCOSE 148 mg/dL (75-110); POTASSIUM 4.7 mmol/L (3.6-5.0); TOTAL PROTEIN 7.5 g/dL (6.3-8.2)
[2020-11-21] MEDS ORDERED: KETOROLAC TROMETHAMINE INJ/PF 30 MG/1 ML SDV IV ONE (16:32)
--- NOTE | 2020-11-21 16:37 | ER Document Report ---
ED ENT - General Chief Complaint: Jaw Pain Stated Complaint: PAIN/KNOT BEHIND RIGHT EAR Time Seen by Provider: 11/21/20 13:18 Primary Care Provider: DEVON KHOURY DO [ASSOCIATE] - Follow up as needed Mode of Arrival: Ambulatory Notes: This 65-year-old man presents to the emergency department with a complaint of a area of pain and swelling in the right lateral neck area. Apparently had a bio psy of the mass done November 12 2020, he has not heard from the report of the biopsy. Yesterday at approximately 2:30 in the afternoon the area began to swell and has continued to get bigger and more painful according to the patient and his significant other. He states that the pain is causing his entire ear and side of his neck to hurt. He has taken ibuprofen with little or no relief. TRAVEL OUTSIDE OF THE [place] IN LAST 30 DAYS: No - Related Data Allergies/Adverse Reactions: No Known Allergies Allergy (Verified 11/21/20 13:21) Home Medications: gabapentin, asa,escitalopram, spiriva,ezetimibe, noolog,tamsulon,metoprolol, lovastatin,trelegy, lantus Past Medical History - General Information source: Patient - Social History Smoking Status: Never Smoker Chew tobacco use (# tins/day): No Frequency of alcohol use: None Drug Abuse: None Family History: Reviewed & Not Pertinent Patient has homicidal ideation: No - Past Medical History Cardiac Medical History: Reports: Hx Atrial Fibrillation, Hx Hypercholesterolemia, Hx Hypertension Endocrine Medical History: Reports: Hx Diabetes Mellitus Type 2, Hx Hypothyroidism Renal/ Medical History: Denies: Hx Peritoneal Dialysis Musculoskeletal Medical History: Reports Hx Arthritis, Denies Hx Systemic Lupus Erythematosus Traumatic Medical History: Reports: Hx Fractures - fx right femur 1972 Past Surgical History: Reports: Hx Appendectomy, Hx Cardiac Catheterization - Immunizations Hx Diphtheria, Pertussis, Tetanus Vaccination: Yes Review of Systems - Review of Systems Notes: Constitutional: Negative for fever. HENT: See HPI Eyes: Negative for visual changes. Cardiovascular: Negative for chest pain. Respiratory: Negative for shortness of breath. Gastrointestinal: Negative for abdominal pain, vomiting or diarrhea. Genitourinary: Negative for dysuria. Musculoskeletal: Negative for back pain. Skin: Negative for rash. Neurological: Negative for headaches, weakness or numbness. 10 point ROS negative except as marked above and in HPI. Physical Exam - Vital signs Vitals: Temp Pulse Resp BP Pulse Ox 98.0 F 78 20 146/61 H 97 11/21/20 12:16 11/21/20 12:16 11/21/20 12:16 11/21/20 12:16 11/21/20 12:16 - Notes Notes: PHYSICAL EXAMINATION: Physical Exam: General: Well-nourished well-developed in no acute distress HEENT: NC/AT, pupils equal round and reactive to light, MM moist,nares clear, oropharynx clear, airway patent 3 cm oval-shaped firm lesion in the right submental area right at the angle of the mandible, tender to touch with no surrounding erythema or tenderness. Neck: supple, no adenopathy, no masses. Good range of motion Lungs: clear, no wheezing, no rales no rhonchi CVS: Regular rate and rhythm no murmur gallop or rub Abdomen: Soft, active, nontender, no masses, no hepatosplenomegaly Ext: No edema, clubbing or cyanosis. Neuro: Alert and responsive, moving all 4 extremities on command, cranial nerves intact, no focal findings Skin: Intact no open lesions, no rash PSYCH: Normal mood, normal affect. Course - Vital Signs Vital signs: Temp Pulse Resp BP Pulse Ox 97.9 F 64 20 142/74 H 99 11/21/20 20:40 11/21/20 20:40 11/21/20 20:40 11/21/20 20:40 11/21/20 20:40 - Laboratory Results Result Diagrams: 11/21/20 13:39 11/21/20 13:39 Laboratory Results Interpreted: 11/21/20 11/21/20 13:39 13:39 Hgb 10.2 L Hct 32.5 L MCV 66 L MCH 21.0 L MCHC 31.6 L RDW 18.9 H Sodium 136.7 L Glucose 148 H Critical Laboratory Results Reviewed: No Critical Results - Radiology Results Radiology Results Interpreted: 11/21/20 23:[address] 11/21/20 13:24 IMPRESSION: There is a 22 x 16 mm right parotid mass as described. This may be benign or malignant. There is what appears to be an adjacent necrotic lymph node. Critical Radiology Results Reviewed: No Critical Results Attending or Supervising Physician who Reviewed Radiology: SIVA ROSA - Right parotid gland enlargement Discharge - Discharge Clinical Impression: Mass of right parotid gland Condition: Good Disposition: HOME, SELF-CARE Instructions: Growth or Mass, Pending Workup (OM) Additional Instructions: You are seen in the emergency department today with right-sided mass and pain in your neck. Please follow-up on the biopsy report, use the medication for pain as prescribed follow-up with your ENT doctor early next week regarding the results of the biopsy and the referral plan. Because you may require further pain management it is important to follow-up with the ENT doctor and your primary care doctor regarding further pain management. If your symptoms are worsening or if you have other concerns you may return to the emergency department for further evaluation and treatment HOME CARE INSTRUCTIONS & INFORMATION: Thank you for choosing us for your [facility] needs. We hope you're satisfied with the care you received. After you leave, you must properly care for your problem and, at the same time, observe its progress. Any condition can change. Some illnesses can change rapidly over hours or days. If your condition worsens, return to the Emergency Department or see your physician promptly. ABOUT YOUR X-RAYS AND EKG'S: If you had an EKG or X-rays taken, they have been read by the Emergency Physician. The X-rays and EKG's will also be read by a Radiologist or Strategic Alliances Manager within 24 hours. If discrepancies are noted, you will be notified by telephone. Please be certain the ED has a correct telephone number & address where you can be reached. Also, realize that some fractures or abnormalities do not show up on initial X-rays. If your symptoms continue, see your physician. ABOUT YOUR LABORATORY TEST: If you had laboratory tests, the results have been reviewed by the Emergency Physician. Some test results (for example cultures) may not be available for several days. You will be contacted if any test result shows you need additional treatment. Please be certain the ED has a correct telephone number and address where you can be reached. ABOUT YOUR MEDICATIONS: You will receive instructions on how to take your medicine on the prescription label you receive. Additional information may be provided by the Pharmacy. If you have questions afterwards, call the ED for clarification or further instructions. Some prescribed medications may cause drowsiness. Do not perform tasks such as driving a car or operating machinery without consulting your Pharmacist. If you feel you need a refill of pain medication, your condition will need re-evaluation. Please do not call for a refill of any medication. ABOUT YOUR SIGNATURE: Signature of this document acknowledges to followin. Understanding that you received emergency treatment and that you may be released before al medical problems are known or treated. Please be certain the ED has a correct phone number & address where you can be reached. 2. Acknowledgement that you will arrange for follow-up care as recommended. 3. Authorization for the Emergency Physician to provide information to your follow-up Physician in order to maximize your care. AT ANY TIME, IF YOUR SYMPTOMS CHANGE SIGNIFICANTLY OR WORSEN OR YOU DEVELOP NEW SYMPTOMS, RETURN TO THE EMERGENCY DEPARTMENT IMMEDIATELY FOR RE-EVALUATION. OUR GOAL IS TO PROVIDE EXCELLENT MEDICAL CARE! WE HOPE THAT WE HAVE MET YOUR EXPECTATIONS DURING YOUR EMERGENCY DEPARTMENT VISIT AND THAT YOU FEEL YOU HAVE RECEIVED EXCELLENT CARE! Prescriptions: Amoxicillin 1 tab PO TID #30 tab Hydrocodone/Acetaminophen [[place] 5-325 Tablet] 1 each PO Q6 PRN 3 Days #12 tablet PRN Reason: For Pain Referrals: DEVON KHOURY, [ASSOCIATE] - Follow up as needed
[2020-11-21] MEDS ORDERED: HYDROMORPHONE HCL INJ/PF 2 MG/ML AMPULE IV ONE (18:03)
--- NOTE | 2020-11-21 18:34 | RADIOLOGY REPORT (SQ) ---
EXAM DESCRIPTION: CT SOFT TISSUE NECK WITH IMAGES COMPLETED DATE/TIME: 11/21/2020 6:05 pm REASON FOR STUDY: neck mass COMPARISON: 2014 TECHNIQUE: Post IV contrasted scanning from skull base through lung apices with review of bone, soft tissue and lung windows. Reconstructed coronal and sagittal MPR images reviewed. All images stored on PACS. All CT scanners at this facility use dose modulation, iterative reconstruction, and/or weight based d osing when appropriate to reduce radiation dose to as low as reasonably achievable (ALARA). [facility]: Dose Right [facility]: CareDose [facility]: Dose Right [facility]: Teradose 4D [facility]: Tbricks CONTRAST TYPE AND DOSE: contrast/concentration: Isovue 350.00 mmol/ml; Total Contrast Delivered: 75. 0 ml; Total Saline Delivered: 51.7 ml RENAL FUNCTION: BUN 12 creatinine 0.8 RADIATION DOSE: CT Rad equipment meets quality standard of care and radiation dose reduction techniq ues were employed. CTDIvol: 18.4 mGy. DLP: 692 mGy-cm. . LIMITATIONS: None. FINDINGS: SKULL BASE: Intact. MAJOR SALIVARY GLANDS: There is a well-circumscribed slightly heterogeneous enhancing mass in the rig ht parotid gland measuring 22 x 16 mm. See image 37 series 3. LYMPHADENOPATHY: There is a 17.7 mm node on the right with central hypo attenuation. See image 45 se antonino 3. MUCOSAL MASSES OR ASYMMETRY: No mucosal masses or asymmetry. LARYNX/CORDS: No abnormal findings. VASCULAR STRUCTURES: The major vessels are patent. LUNG APICES: Clear. BONES: Intact. THYROID: Normal size. No masses. PARANASAL SINUSES: Clear. OTHER: No other significant finding. IMPRESSION: There is a 22 x 16 mm right parotid mass as described. This may be benign or malignant. There is what appears to be an adjacent necrotic lymph node. TECHNICAL DOCUMENTATION: JOB ID: [id number] Quality ID # [id number]: Final reports with documentation of one or more dose reduction techniques (e.g., Au tomated exposure control, adjustment of the mA and/or kV according to patient size, use of iterative reconstruction technique) 2010 [employer]- All Rights Reserved Reading location - IP/workstation name: [email or web address]
[2020-11-21] MEDS ORDERED: AMOXICILLIN TRIHYDRATE 500 MG CAPSULE PO ONE (20:19)
[2020-11-21] MEDS ORDERED: HYDROCODONE/ACETAMINOPHEN 5-325 MG (6 TAB/ER DISP) PO PRN (20:20)
[2020-11-21 20:41] VITALS: BP 142/74
== END 2020-11-21 21:01 | disposition home or self-care (01) ==
LOC: ER 12:13
DX: I89.9 Noninfective disorder of lymphatic vessels and lymph nodes, unspecified (principal); M54.2 Cervicalgia; E78.00 Pure hypercholesterolemia, unspecified; I10 Essential (primary) hypertension; E11.9 Type 2 diabetes mellitus without complications; Z98.890 Other specified postprocedural states; Z79.899 Other long term (current) drug therapy; Z79.82 Long term (current) use of aspirin; Z79.4 Long term (current) use of insulin; Z79.51 Long term (current) use of inhaled steroids
CPT/HCPCS: 99285; 96374; 96375; 36415; 85025; 80053; 70491; J1885; J1170